=== PATIENT | female | born 1950 | race Caucasian/White ===

== ENCOUNTER → 2017-09-10 | Day surgery (SDC) | payer OTHER ==
[2017-09-01 14:06] VITALS: Ht 160 cm; Wt 65.5 kg
[~2017-09-10] VITALS: Ht 160 cm; Wt 65.5 kg
[~2017-09-10] MED LIST: 500ML BSS 0.3ML EPI 1:1000PF IRRIG ONE; ACETAMINOPHEN 325 MG TAB ONE; ACETAMINOPHEN 325 MG TAB PO PRN; AMVISC PLUS 0.8ML SYRINGE INT OCU ONE; ASPCH81X PO; ATOR-26 PO; ATROPINE SULFATE 0.1 MG/ML 5ML SYR IV PRN; BSS FLUSH ONE; BUSP15TA70 PO; DULO60CA44 PO; ELLIPTA INH; ENDOCOAT 0.85ML SYRINGE INT OCU ONE; EpINEphrine INJ 1MG/ML AMP 1 MG/ML AMP ONE; FENTANYL CITRATE INJ 50 MCG/1 ML 2 ML VIAL ONE; FERR1TAB12 PO; FLUT1SPR12 NAE; GLIP2.5T11 PO; HYDR-4380 PO; LACTATED RINGER'S 1000ML 500 ML IV SCH; LIDOCAINE 4% OP SOLN DROP CHARGE ONE; LIDOCAINE 4% OP SOLN DROP CHARGE OPL SCH; LIDOCAINE HCL 1% MPF 2 ML VIAL ONE; LORA10TA51 PO; MELA1TAB5 PO; METO25TA3 PO; MIDAZOLAM HCL 1 MG/ML 2ML VIAL ONE; MIX: 4ML BSS 1ML EPI 1:1000 PF TOP ONE; MOXIFLOXACIN OPH SOLN PER DROP CHARGE ONE; NURSING VERBAL MED ORDER ONE; OMEP20CA59 PO; OYST500T47 PO; POVIDONE-IODINE OP SOLN 30 ML BTL ONE; PROPARACAINE 0.5% OP SOLN PER DROP CHARGE OPL ONE; PROPARACAINE 0.5% OP SOLN PER DROP CHARGE OPL SCH; TOBRAMYCIN/DEXAMETHASONE OPH OINT PER APPLN CHARGE ONE; VNTHFA/IN INH
[2017-09-10] MEDS: PHENYLEPHRINE HCL 2.5% OP SOLN PER DROP CHARGE OPL SCH ×3 (10:19→10:31)
[2017-09-10] MEDS: TROPICAMIDE 1% OP SOLN PER DROP CHARGE OPL SCH ×3 (10:21→10:32)
[2017-09-10] MEDS: CYCLOPENTOLATE HCL 1% OP SOLN PER DROP CHARGE OPL SCH ×3 (10:22→10:33)
[2017-09-10] MEDS: MOXIFLOXACIN OPH SOLN PER DROP CHARGE OPL SCH ×3 (10:23→10:34)
--- NOTE | 2017-09-10 10:26 | History & Physical Bridge - SC ---
H&P Re-Evaluation Bridge Note: I have examined the patient, reviewed the History & Physical and in the interval since the performance of the History & Physical I have noted the following changes of clinical significance: No changes noted
--- NOTE | 2017-09-10 11:32 | [facility] Post Operative Brief Note ---
Immediate Operative Summary Operative Date Sep 10, 2017. Pre-Operative Diagnosis Cataract Left Eye Post-Operative Diagnosis Same Procedure(s) Performed Left Cataract Phacoemulsification With Intraocular Lens Implant Surgeon Dr. Green Summer Internship Surgeon(s) None Estimated Blood Loss 0 Findings left cataract Specimens None Complication(s) None Disposition
--- NOTE | 2017-09-10 11:33 | [facility] Operative Report ---
Operative Report Date of Service Sep 10, 2017. Operative Report DATE OF OPERATION: 09/10/17 PREOPERATIVE DIAGNOSIS: Senile nuclear cataract, left eye POSTOPERATIVE DIAGNOSIS: Senile nuclear cataract, left eye PROCEDURE PERFORMED: Phacoemulsification with intraocular lens implantation, left eye SURGEON: Dr. Erik Green ANESTHESIA: Topical with 1% intracameral lidocaine and monitored anesthesia care COMPLICATIONS: None DESCRIPTION OF PROCEDURE: After positively identifying the patient both verbally and by wristband in the preoperative area, the left eye was marked as the operative eye. The patient was then brought back to the operating room by the anesthesia and nursing staff where they were given a drop of Lidocaine and betadine into the operative eye. They were then sterilely prepped and draped in the standard fashion typical for ophthalmic surgery. Steri-strips were placed along the upper eyelids to keep the lashes back, and a lid speculum was placed into the operative eye. At this point, a documented time out was performed with members of the ophthalmology, nursing, and anesthesia staffs all agreeing upon the correct patient, correct location for surgery, correct procedure, and correct type and power of intraocular lens to be implanted. The microscope was then swung into position. First, a paracentesis wound was made using a sideport blade. Then, in sequence, 1% preservative-free lidocaine followed by Endocoat viscoelastic was injected into the anterior chamber. Next , the main incision was made with a keratome blade in triplanar fashion. A sharp cystotome was introduced into the eye and used to create a tear in the anterior capsule, which was directed into a continuous curvilinear capsulorrhexis using Utrata forceps. Hydrodissection was then performed with BSS on a flat-tip cannula. Next, the phacoemulsification handpiece was introduced into the eye and used to remove the nucleus in a [id number] fashion. This was done without complication and then the irrigation-aspiration handpiece was introduced into the eye and used to remove all remaining cortical and epinuclear material. Amvisc was then injected into the anterior chamber as well as into the capsular bag and using the lens injector system, an MX60 26.5 D lens, serial number [id number], and expiration date 02/2019 was injected into the capsular bag and rotated into the correct position. Next, the irrigation- aspiration handpiece was used to remove all remaining Amvisc. BSS was used to hydrate the main wound, and then BSS was injected into the paracentesis site to reach physiologic pressure and then the main wound was checked and found to be watertight. The patient was given drops of Vigamox and Tobradex ointment into the operative eye, and then the surrounding area was cleaned and dried. A clear plastic shield was placed over the eye and the patient was then sat up and taken from the operating room by the anesthesia staff having tolerated the procedure well and suffering no complications. DISPOSITION: The patient was returned to the recovery room in stable condition. I attest to the content of the Intraoperative Record and any orders documented therein. Any exceptions are noted below.
--- NOTE | 2017-09-10 11:34 | Discharge Instructions-SurgCtr ---
Discharge Instructions Date of Service Sep 10, 2017. Visit Reason for Visit: Cataract Left Eye Discharge Discharge Diagnosis / Problem: left cataract Discharge Goals Goal(s): Decrease discomfort, Improve function Activity Recommendations Activity Limitations: as noted below Anesthesia . Post Anesthesia Instructions: If you have had General Anesthesia or IV Sedation: * Do not drive today. * Resume driving when surgeon permits. * Do not make important decisions or sign legal documents today. * Call surgeon for: 1. Temperature elevations greater than 101 degrees F. 2. Uncontrollable pain. 3. Excessive bleeding. 4. Persistent nausea and vomiting. 5. Medication intolerance (nausea, vomiting or rash). * For nausea and vomiting use only clear liquids such as: tea, soda, bouillon until nausea subsides, then gradually increase diet as tolerated. * If you have any concerns or questions, call your surgeon's office. If physician is unavailable and it is an emergency, call 911 or go to the nearest emergency room. . Instructions / Follow-Up Instructions / Follow-Up ACTIVITY RECOMMENDATIONS: * Light activities. * You may walk outside, read, watch television. * You may notice redness on the white part of the eye and some blurry vision - this is normal. MEDICATIONS: Resume previous medications unless instructed otherwise by your surgeon. Start all eye drops at 1:30 pm today: * Eye drops (today): Prednisone - one drop in operative eye every 2 hours while awake Ofloxacin - one drop in operative eye every 2 hours while awake Bromfenac - one drop in operative eye daily SPECIAL CARE INSTRUCTIONS: * Tape plastic shield over eye to sleep at night. Call your doctor at with any concerns or problems. FOLLOW UP VISIT: Follow-up with Dr Green at [facility] as scheduled. Diet Recommendations Home Diet: no limitations Procedures Procedures Performed: Left Cataract Phacoemulsification With Intraocular Lens Implant Pending Studies Studies pending at discharge: no Medical Emergencies . Who to Call and When: Medical Emergencies: If at any time you feel your situation is an emergency, please call 911 immediately. . Non-Emergent Contact Non-Emergency issues call your: Surgeon . . "Provider Documentation" section prepared by Erik Green. .
[2017-09-10 11:35] VITALS: TEMP 36.8
--- NOTE | 2017-09-10 11:55 | Anesthesia Progress Nt - [facility] ---
Anesthesia Post Op Note Date & Time Sep 10, 2017 at 11:54 Vital Signs Pain Intensity: 0 Vital Signs Past 12 Hours Date Time Temp Pulse Resp B/P (MAP) Pulse Ox O2 Delivery O2 Flow Rate FiO2 09/10/17 11:35 36.8 60 16 128/71 (90) 94 Room Air 09/10/17 10:09 36.4 60 16 150/84 (106) 95 Room Air Notes Mental Status: alert / awake / arousable, participated in evaluation Pt Amnestic to Procedure: Yes Nausea / Vomiting: adequately controlled Pain: adequately controlled Airway Patency, RR, SpO2: stable & adequate BP & HR: stable & adequate Hydration State: stable & adequate Anesthetic Complications: no major complications apparent
[2017-09-10 12:27] VITALS: BP 129/66; PULSE 60; O2SAT 96
== END | disposition home or self-care (01) ==
LOC: X.SURG 09:44
PROVIDERS: ATTEND Ophthalmology
DX: H25.12 Age-related nuclear cataract, left eye (principal); E11.36 Type 2 diabetes mellitus with diabetic cataract; I10 Essential (primary) hypertension; M06.9 Rheumatoid arthritis, unspecified; Z79.899 Other long term (current) drug therapy

== ENCOUNTER 2018-02-09 11:05 | Emergency (ER) | payer OTHER ==
[~2018-02-09] VITALS: Ht 167.6 cm; Wt 67.0 kg
[~2018-02-09 11:05] MED LIST changes: -500ML BSS 0.3ML EPI 1:1000PF IRRIG ONE; -ACETAMINOPHEN 325 MG TAB ONE; -ACETAMINOPHEN 325 MG TAB PO PRN; -AMVISC PLUS 0.8ML SYRINGE INT OCU ONE; -ATROPINE SULFATE 0.1 MG/ML 5ML SYR IV PRN; -BSS FLUSH ONE; -ELLIPTA INH; -ENDOCOAT 0.85ML SYRINGE INT OCU ONE; -EpINEphrine INJ 1MG/ML AMP 1 MG/ML AMP ONE; -FENTANYL CITRATE INJ 50 MCG/1 ML 2 ML VIAL ONE; -LACTATED RINGER'S 1000ML 500 ML IV SCH; -LIDOCAINE 4% OP SOLN DROP CHARGE ONE; -LIDOCAINE 4% OP SOLN DROP CHARGE OPL SCH; -LIDOCAINE HCL 1% MPF 2 ML VIAL ONE; -MIDAZOLAM HCL 1 MG/ML 2ML VIAL ONE; -MIX: 4ML BSS 1ML EPI 1:1000 PF TOP ONE; -MOXIFLOXACIN OPH SOLN PER DROP CHARGE ONE; -NURSING VERBAL MED ORDER ONE; -POVIDONE-IODINE OP SOLN 30 ML BTL ONE; -PROPARACAINE 0.5% OP SOLN PER DROP CHARGE OPL ONE; -PROPARACAINE 0.5% OP SOLN PER DROP CHARGE OPL SCH; -TOBRAMYCIN/DEXAMETHASONE OPH OINT PER APPLN CHARGE ONE
[2018-02-09 11:12] VITALS: TEMP 36.9; Ht 167.6 cm; Wt 67.0 kg
[2018-02-09] MEDS ORDERED: ONDANSETRON INJ 2 MG/ML 2 ML VIAL IV STA (11:43)
[2018-02-09] MEDS ORDERED: SODIUM CHLORIDE 0.9% 1000ML 1,000 ML IV STA (11:43)
[2018-02-09] MEDS ORDERED: OPTIRAY 320 IV PRN (12:00)
--- NOTE | 2018-02-09 12:03 | EMERGENCY ROOM VISIT NOTE ---
History Report prepared by David: César Ceja Under the Supervision of: Dr. Franc Benitez M.D. First contact with patient: 11:32 Chief Complaint: GI ASSESSMENT Stated Complaint: CONSTIPATION History of Present Illness The patient is a 67 year old female who presents to the Emergency Room with complaints of constant constipation for the past 4 days. The patient states that she went to [facility] for colitis, and she was given morphine, and she has not had a bowel movement since that hospital visit. She notes that if she eats anything, then 5-10 minutes later she will vomit, and she states that she has been having a bad taste in her mouth and abdominal pain and fullness. The patient additionally notes that for the past few months she has been having trouble with her balance which is worse with looking upwards, and she states that she has fallen 4 times in the past month. She notes that she has had brain imaging done in the past two months, and she has been to therapy. The patient additionally notes that she has been been hot and cold for several months. She states that she takes Vicodin as needed for her back pain, though she has not taken any this week. The patient notes that she does not have a history of constipation, and she is not on any blood thinners. Source of History: patient Onset: 4 days ago Position: other (generalized) Quality: other (constipation) Timing: constant Associated Symptoms: + nausea, + vomiting, + abdominal pain Note: Associated symptoms: Trouble with her balance. Review of Systems See HPI for pertinent positives and negatives. A total of ten systems were reviewed and were otherwise negative. Past Medical & Surgical Medical Problems: (1) Depression (2) Diabetes type 2, controlled (3) HLD (hyperlipidemia) (4) HTN (hypertension) (5) Stage 3 chronic kidney disease Social History Smoking Status: Never Smoker Marital Status: Housing Status: lives with family Occupation Status: retired Current/Historical Medications Scheduled Aspirin (Aspirin Chewable), 81 MG PO QAM Atorvastatin (Lipitor), 80 MG PO QPM Buspirone Hcl (Buspar), 15 MG PO TID Duloxetine Hcl (Cymbalta), 60 MG PO QAM Ferrous Gluconate (Kp Ferrous Gluconate), 324 MG PO QPM Fluticasone Propionate (Nasal) (Flonase Allergy Relief ), 2 SPRAY LACI DAILY Glipizide (Glipizide Er), 2.5 MG PO QPM Melatonin (Kp Melatonin), 3 MG PO HS Metoprolol Succ (Toprol Xl) (Toprol-Xl), 37.5 MG PO QAM Omeprazole (Prilosec), 20 MG PO BID Oyster Shell (Calcium), 500 MG PO DAILY Scheduled PRN Albuterol Hfa (Ventolin Hfa), 2-4 PUFFS INH Q6H PRN for Shortness of Breath Docusate Sodium (Colace), 1 CAP PO BID PRN for Constipation Hydrocodone-Acetaminophen (Hydrocodone/Acetaminophen), 0.5-1 TAB PO BID PRN for Pain Loratadine (Claritin), 10 MG PO DAILY PRN for PRN ALLERGIES Allergies Coded Allergies: Ciprofloxacin (Verified Allergy, Unknown, hives, 02/09/18) Oxycodone (Verified Allergy, Unknown, hives; BUT PATIENT TAKES VICODIN W/ O RXN, 02/09/18) Penicillins (Verified Allergy, Unknown, hives, 02/09/18) Physical Exam Vital Signs Date Time Temp Pulse Resp B/P (MAP) Pulse Ox O2 Delivery O2 Flow Rate FiO2 02/09/18 17:00 84 18 174/91 95 02/09/18 15:04 69 18 167/87 96 Room Air 02/09/18 13:14 65 18 146/86 96 Room Air 02/09/18 12:19 73 02/09/18 11:12 36.9 71 18 179/92 95 Room Air Physical Exam GENERAL: Awake, alert, fatigued-appearing, uncomfortable, in no distress HENT: Normocephalic, atraumatic. Oropharynx unremarkable. EYES: Normal conjunctiva. Sclera non-icteric. NECK: Supple. No nuchal rigidity. FROM. No JVD. RESPIRATORY: Clear to auscultation. CARDIAC: Regular rate, normal rhythm. Extremities warm and well perfused. Pulses equal. ABDOMEN: Generalized abdominal tenderness with mild distension. No peritoneal signs. Soft. No rebound or guarding. No masses. RECTAL: Deferred. MUSCULOSKELETAL: Chest examination reveals no tenderness. The back is symmetrical on inspection without obvious abnormality. There is no CVA tenderness to palpation. No joint edema. LOWER EXTREMITIES: Calves are equal size bilaterally and non-tender. No edema. No discoloration. NEURO: Normal sensorium. No sensory or motor deficits noted. SKIN: No rash or jaundice noted. Medical Decision & Procedures ER Provider Diagnostic Interpretation: Radiology results as stated below per my review and radiologist interpretation: CHEST ONE VIEW PORTABLE HISTORY: 67 years-old Female ABDOMINAL PAIN/GI acute generalized abdominal pain with constipation COMPARISON: Chest radiographs 09/30/2014 TECHNIQUE: Portable AP view of the chest FINDINGS: Cardiac silhouette is within normal limits in size. Atherosclerosis of the aorta. Small to moderate hiatal hernia. No pneumothorax, pleural effusion, focal airspace consolidation or overt pulmonary edema. Previously described nodular opacity left lower lobe is not identified on today's study. Degenerative changes are seen within the shoulders and spine. Spinal stimulator leads are noted overlying the midthoracic spine. Cervical spine fusion hardware noted. IMPRESSION: 1. No acute process of the chest. 2. Small to moderate hiatal hernia. The above report was generated using voice recognition software. It may contain grammatical, syntax or spelling errors. Electronically signed by: Juan Jensen M.D. 02/09/2018 12:28 PM Dictated Date/Time: 02/09/2018 12:[address] OF THE ABDOMEN AND PELVIS WITHOUT CONTRAST CLINICAL HISTORY: Abdominal pain and distention. Recent colitis. COMPARISON STUDY: No previous studies for comparison. TECHNIQUE: Axial images of the abdomen and pelvis were obtained without IV contrast. Images were reviewed in the axial, sagittal, and coronal planes. A dose lowering technique was utilized adhering to the principles of ALARA. FINDINGS: Images of the lower chest demonstrate atelectasis within the lingula. A moderate sized hiatal hernia is noted. There is no pneumatosis, free air or portal venous gas. Evaluation of the abdomen and pelvis is suboptimal on this unenhanced exam. Unenhanced images of the heart, spleen and kidneys are unremarkable. There is no hydronephrosis or hydroureter. No renal, ureteral or bladder calculi are identified. Is no evidence for a bowel obstruction. There is apparent moderate circumferential wall thickening of the proximal ascending colon shown on axial image 267 of 411. The appendix is normal. There is colonic diverticulosis without evidence for acute diverticulitis. Intrathecal electrode is noted. There are no suspicious osseous lesions. IMPRESSION: 1. Apparent short segment moderate circumferential wall thickening of the proximal ascending colon. This may be related to resolving colitis or reflect artifact/peristalsis. However, a mucosal lesion could appear similar. A follow-up colonoscopy is recommended. 2. No bowel obstruction. Normal appendix. 3. Moderate sized hiatal hernia. Electronically signed by: Angel Gibson M.D. 02/09/2018 2:32 PM Dictated Date/Time: 02/09/2018 2:08 PM Laboratory Results 02/09/18 11:54 Red Blood Count 4.07, Mean Corpuscular Volume 84.0, Mean Corpuscular Hemoglobin 29.0, Mean Corpuscular Hemoglobin Concent 34.5, Mean Platelet Volume 10.5, Neutrophils (%) (Auto) 62.5, Lymphocytes (%) (Auto) 25.8, Monocytes (%) (Auto) 9.2, Eosinophils (%) (Auto) 1.5, Basophils (%) (Auto) 0.4, Neutrophils # (Auto) 4.49, Lymphocytes # (Auto) 1.85, Monocytes # (Auto) 0.66, Eosinophils # (Auto) 0.11, Basophils # (Auto) 0.03 02/09/18 11:54 Test 02/09/18 11:54 02/09/18 13:14 White Blood Count 7.18 K/uL (4.8-10.8) Red Blood Count 4.07 M/uL (4.2-5.4) Hemoglobin 11.8 g/dL (12.0-16.0) Hematocrit 34.2 % (37-47) Mean Corpuscular Volume 84.0 fL (80-100) Mean Corpuscular Hemoglobin 29.0 pg (25-34) Mean Corpuscular Hemoglobin Concent 34.5 g/dl (32-36) Platelet Count 273 K/uL (130-400) Mean Platelet Volume 10.5 fL (7.4-10.4) Neutrophils (%) (Auto) 62.5 % Lymphocytes (%) (Auto) 25.8 % Monocytes (%) (Auto) 9.2 % Eosinophils (%) (Auto) 1.5 % Basophils (%) (Auto) 0.4 % Neutrophils # (Auto) 4.49 K/uL (1.4-6.5) Lymphocytes # (Auto) 1.85 K/uL (1.2-3.4) Monocytes # (Auto) 0.66 K/uL (0.11-0.59) Eosinophils # (Auto) 0.11 K/uL (0-0.5) Basophils # (Auto) 0.03 K/uL (0-0.2) RDW Standard Deviation 40.7 fL (36.4-46.3) RDW Coefficient of Variation 13.3 % (11.5-14.5) Immature Granulocyte % (Auto) 0.6 % Immature Granulocyte # (Auto) 0.04 K/uL (0.00-0.02) Anion Gap 7.0 mmol/L (3-11) Est Creatinine Clear Calc Drug Dose 30.9 ml/min Estimated GFR () 37.4 Estimated GFR (Non- 32.3 BUN/Creatinine Ratio 10.2 (10-20) Lactic Acid Level 1.3 mmol/L (0.4-2.0) Calcium Level 9.5 mg/dl (8.5-10.1) Magnesium Level 2.0 mg/dl (1.8-2.4) Total Bilirubin 0.6 mg/dl (0.2-1) Direct Bilirubin 0.2 mg/dl (0-0.2) Aspartate Amino Transf (AST/SGOT) 44 U/L (15-37) Alanine Aminotransferase (ALT/SGPT) 36 U/L (12-78) Alkaline Phosphatase 123 U/L (45-117) Total Protein 7.9 gm/dl (6.4-8.2) Albumin 4.0 gm/dl (3.4-5.0) Lipase 90 U/L (73-393) Urine Color YELLOW Urine Appearance CLEAR (CLEAR) Urine pH 6.5 (4.5-7.5) Urine Specific [place] 1.012 (1.000-1.030) Urine Protein TRACE (NEG) Urine Glucose (UA) NEG (NEG) Urine Ketones NEG (NEG) Urine Occult Blood NEG (NEG) Urine Nitrite NEG (NEG) Urine Bilirubin NEG (NEG) Urine Urobilinogen NEG (NEG) Urine Leukocyte Esterase NEG (NEG) Urine WBC (Auto) 1-5 /hpf (0-5) Urine RBC (Auto) 0-4 /hpf (0-4) Urine Hyaline Casts (Auto) 1-5 /lpf (0-5) Urine Epithelial Cells (Auto) >30 /lpf (0-5) Urine Bacteria (Auto) NEG (NEG) Laboratory results reviewed by me Medications Administered Medications (Trade) Dose Ordered Sig/Vega Route Start Time Stop Time Status Last Admin Dose Admin Sodium Chloride 1,000 ml @ 999 mls/hr Q1H1M STAT IV 02/09/18 11:43 02/09/18 12:43 DC 02/09/18 12:05 999 MLS/HR Ondansetron HCl (Zofran Inj) 4 mg NOW STAT IV 02/09/18 11:43 02/09/18 11:47 DC 02/09/18 12:05 4 MG Metoclopramide HCl (Reglan Inj) 10 mg NOW STAT IV 02/09/18 14:48 02/09/18 14:50 DC 02/09/18 15:50 10 MG Sodium Biphosphate/ Sodium Phosphate (Fleet Enema) 132 ml NOW STAT [place] 02/09/18 14:48 02/09/18 14:50 DC 02/09/18 15:50 132 ML ECG Per My Interpretation Indication: abdominal pain Rate (beats per minute): 62 Rhythm: normal sinus Findings: no acute ischemic change, other (normal axis) ED Course 1132: The patient was evaluated in room B10. A complete history and physical exam was performed. 1451: I reevaluated the patient, and she was doing well. 1642: I reevaluated the patient. Discussed results and discharge instructions: she verbalized understanding and agreement. The patient is ready for discharge. Medical Decision I reviewed the patient's past medical history, medications, and the nursing notes as described above. Differential diagnosis: Etiologies such as appendicitis, diverticulitis, PUD, biliary pathology, UTI, pancreatitis, obstruction, mesenteric ischemia, aortic pathology, infections, inflammatory bowel disease, renal colic, as well as others were entertained. The patient is a 67-year-old woman who presents emergency department with generalized abdominal pain in setting of being recently diagnosed with colitis at outside hospital per hpi. Of note, patient reports also having chronic symptoms of difficulty with balance where she leans to the right but had unremarkable MRI of the brain in November. On arrival the patient is no acute distress, afebrile stable vital signs. On exam the patient has generalized abdominal tenderness with mild distention and otherwise without any peritoneal signs. Creatinine 1.6 which is increased from 2014 however no recent comparisons. Labs otherwise unremarkable including WBC and lactate within normal limits. CT scan demonstrates, "segment moderate circumferential wall thickening of the proximal ascending colon. This may be related to resolving colitis or reflect artifact/peristalsis. However, a mucosal lesion could appear similar". Review of scan does demonstrate moderate stool burden and so patient was given Reglan and Fleet enema with subsequent bowel movement and resolution of her symptoms. Recent symptoms possibly due to narcotics from her recent ED visit where she was given IV morphine. Plan for outpatient f/u and colonoscopy as planned. Findings and plan for follow-up reviewed with patient. Patient agreeable and d/c 'd per discharge instructions. Findings and plan for follow-up reviewed with patient. Patient agreeable and d/c 'd per discharge instructions. Medication Reconcilliation Current Medication List: was personally reviewed by me Blood Pressure Screening Patient's blood pressure: Elevated blood pressure Blood pressure disposition: Referred to PCP Impression Primary Impression: Constipation due to opioid therapy Scribe Attestation The scribe's documentation has been prepared under my direction and personally reviewed by me in its entirety. I confirm that the note above accurately reflects all work, treatment, procedures, and medical decision making performed by me. Departure Information Dispostion Home / Self-Care Prescriptions Docusate Sodium (COLACE) 100 Mg Cap 1 CAP PO BID Y for Constipation for 15 Days, #30 CAP Prov: Franc Benitez M.D. 02/09/18 Referrals Erika ZHENG M.D. (PCP) Forms HOME CARE DOCUMENTATION FORM, IMPORTANT VISIT INFORMATION Patient Instructions ED Constipation, My [facility] Additional Instructions Please follow up with your primary care physician and GI specialist in the next week for re-evaluation. Your symptoms are most likely due to constipation. Otherwise, your exam, lab results, and CT scan did not show signs of an emergent condition at this time. Colace as needed for constipation. Drink plenty of fluids to ensure hydration. Return to the emergency department for worsening symptoms as described in the accompanying instructions.
[2018-02-09 12:10] LABS: BASO % 0.4 %; BASO ABS # 0.03 K/uL (0-0.2); EOS % 1.5 %; EOS ABS # 0.11 K/uL (0-0.5); HEMATOCRIT 34.2 % (37-47); HEMOGLOBIN 11.8 g/dL (12.0-16.0); IG# 0.04 K/uL (0.00-0.02); LYMPH % 25.8 %; LYMPH ABS # 1.85 K/uL (1.2-3.4); MEAN CORPUSCULAR HGB CONC 34.5 g/dl (32-36); MEAN PLATELET VOLUME 10.5 fL (7.4-10.4); MONO % 9.2 %; MONO ABS # 0.66 K/uL (0.11-0.59); NEUT % 62.5 %; NEUT ABS # 4.49 K/uL (1.4-6.5); PLATELET COUNT 273 K/uL (130-400); RED CELL DISTRIBUTION WIDTH CV 13.3 % (11.5-14.5); RED CELL DISTRIBUTION WIDTH SD 40.7 fL (36.4-46.3); WHITE BLOOD COUNT 7.18 K/uL (4.8-10.8)
[2018-02-09 12:22] LABS: CALCIUM 9.5 mg/dl (8.5-10.1); CREATININE 1.61 mg/dl (0.60-1.20); POTASSIUM 3.6 mmol/L (3.5-5.1)
[2018-02-09 12:25] LABS: TOTAL PROTEIN 7.9 gm/dl (6.4-8.2)
--- NOTE | 2018-02-09 12:29 | DIAGNOSTIC IMAGING REPORT ---
CHEST ONE VIEW PORTABLE HISTORY: 67 years-old Female ABDOMINAL PAIN/GI acute generalized abdominal pain with constipation COMPARISON: Chest radiographs 09/30/2014 TECHNIQUE: Portable AP view of the chest FINDINGS: Cardiac silhouette is within normal limits in size. Atherosclerosis of the aorta. Small to moderate hiatal hernia. No pneumothorax, pleural effusion, focal airspace consolidation or overt pulmonary edema. Previously described nodular opacity left lower lobe is not identified on today's study. Degenerative changes are seen within the shoulders and spine. Spinal stimulator leads are noted overlying the midthoracic spine. Cervical spine fusion hardware noted. IMPRESSION: 1. No acute process of the chest. 2. Small to moderate hiatal hernia. The above report was generated using voice recognition software. It may contain grammatical, syntax or spelling errors. Electronically signed by: Juan Jensen M.D. 02/09/2018 12:28 PM Dictated Date/Time: 02/09/2018 12:26 PM
[2018-02-09] MEDS ORDERED: PRLSR20 PO (14:19)
--- NOTE | 2018-02-09 14:34 | DIAGNOSTIC IMAGING REPORT ---
CT OF THE ABDOMEN AND PELVIS WITHOUT CONTRAST CLINICAL HISTORY: Abdominal pain and distention. Recent colitis. COMPARISON STUDY: No previous studies for comparison. TECHNIQUE: Axial images of the abdomen and pelvis were obtained without IV contrast. Images were reviewed in the axial, sagittal, and coronal planes. A dose lowering technique was utilized adhering to the principles of ALARA. FINDINGS: Images of the lower chest demonstrate atelectasis within the lingula. A moderate sized hiatal hernia is noted. There is no pneumatosis, free air or portal venous gas. Evaluation of the abdomen and pelvis is suboptimal on this unenhanced exam. Unenhanced images of the heart, spleen and kidneys are unremarkable. There is no hydronephrosis or hydroureter. No renal, ureteral or bladder calculi are identified. Is no evidence for a bowel obstruction. There is apparent moderate circumferential wall thickening of the proximal ascending colon shown on axial image 267 of 411. The appendix is normal. There is colonic diverticulosis without evidence for acute diverticulitis. Intrathecal electrode is noted. There are no suspicious osseous lesions. IMPRESSION: 1. Apparent short segment moderate circumferential wall thickening of the proximal ascending colon. This may be related to resolving colitis or reflect artifact/peristalsis. However, a mucosal lesion could appear similar. A follow-up colonoscopy is recommended. 2. No bowel obstruction. Normal appendix. 3. Moderate sized hiatal hernia. Electronically signed by: Angel Gibson M.D. 02/09/2018 2:32 PM Dictated Date/Time: 02/09/2018 2:08 PM
[2018-02-09] MEDS ORDERED: SOD PHOSPHATE/SOD BIPHOSPHATE ENEMA 132 ML BTL PR STA (14:48)
[2018-02-09] MEDS ORDERED: METOCLOPRAMIDE HCL INJ 5 MG/ML 2 ML VIAL IV STA (14:48)
[2018-02-09] MEDS ORDERED: DOCU-94 PO (16:50)
[2018-02-09 17:00] VITALS: BP 174/91; PULSE 84; O2SAT 95
== END 2018-02-09 17:03 | disposition home or self-care (01) ==
LOC: C.EDB 11:06
DX: K59.09 Other constipation (principal); K52.9 Noninfective gastroenteritis and colitis, unspecified; R29.6 Repeated falls; E11.22 Type 2 diabetes mellitus with diabetic chronic kidney disease; I12.9 Hypertensive chronic kidney disease with stage 1 through stage 4 chronic kidney disease, or unspecified chronic kidney disease; N18.3 Chronic kidney disease, stage 3 (moderate); F32.9 Major depressive disorder, single episode, unspecified; E78.5 Hyperlipidemia, unspecified; Z79.84 Long term (current) use of oral hypoglycemic drugs; Z79.82 Long term (current) use of aspirin; Z88.1 Allergy status to other antibiotic agents; Z88.6 Allergy status to analgesic agent; Z88.0 Allergy status to penicillin

== ENCOUNTER 2018-02-21 21:22 | Emergency (ER) | payer OTHER ==
[~2018-02-21 21:22] MED LIST changes: +DOCU-94 PO; -OMEP20CA59 PO; +PRLSR20 PO
[2018-02-21 21:30] VITALS: TEMP 36.7
--- NOTE | 2018-02-21 21:53 | EMERGENCY ROOM VISIT NOTE ---
History Report prepared by David: Kathe Chavarria Under the Supervision of: Dr. Ti Artis M.D. First contact with patient: 21:41 Chief Complaint: ABDOMINAL PAIN Stated Complaint: ABDOMINAL PAIN, BLOATING, NAUSEA, DIARRHEA History of Present Illness The patient is a 67 year old white female with a past medical history of diabetes and HLD who presents to the ED with a cc of abdominal pain beginning since February 04. Positive nausea, vomiting, black diarrhea, lack of urination, stomach swelling, and a bad taste in her mouth. Negative abdominal surgeries or recent antibiotic use. She describes her pain as constant tightness and pressure. Her last bowel movement was around 1999 today. The patient takes pills for her diabetes. Source of History: patient Onset: February 04 Position: abdomen Quality: pressure, other (tightness) Timing: constant Associated Symptoms: + nausea, + vomiting, + diarrhea (black), + urinary symptoms (lack of urination) Note: Positive stomach swelling and a bad taste in her mouth. Negative abdominal surgeries or recent antibiotic use. Review of Systems See HPI for pertinent positives and negatives. A total of ten systems were reviewed and were otherwise negative. Past Medical & Surgical Medical Problems: (1) Depression (2) Diabetes type 2, controlled (3) HLD (hyperlipidemia) (4) HTN (hypertension) (5) Stage 3 chronic kidney disease Family History Diabetes mellitus High blood pressure Social History Smoking Status: Former Smoker Smokeless Tobacco Use: No Alcohol Use: none Marital Status: Housing Status: lives with family Occupation Status: retired Current/Historical Medications Scheduled Aspirin (Aspirin Chewable), 81 MG PO QAM Atorvastatin (Lipitor), 80 MG PO QPM Buspirone Hcl (Buspar), 15 MG PO TID Dicyclomine Hcl (Bentyl), 1 CAP PO TID Duloxetine Hcl (Cymbalta), 60 MG PO QAM Ferrous Gluconate ( Ferrous Gluconate), 324 MG PO QPM Glipizide (Glipizide Er), 2.5 MG PO ON HOLD Melatonin (Kp Melatonin), 3 MG PO HS Metoprolol Succ (Toprol Xl) (Toprol-Xl), 37.5 MG PO QAM Omeprazole (Prilosec), 20 MG PO BID Scheduled PRN Albuterol Hfa (Ventolin Hfa), 2-4 PUFFS INH Q6H PRN for Shortness of Breath Docusate Sodium (Colace), 1 CAP PO BID PRN for Constipation Fluticasone Propionate (Nasal) (Flonase Allergy Relief Ch), 2 SPRAY LACI DAILY PRN for Nasal Congestion Hydrocodone-Acetaminophen (Hydrocodone/Acetaminophen), 0.5-1 TAB PO BID PRN for Pain Loratadine (Claritin), 10 MG PO DAILY PRN for PRN ALLERGIES Ondansetron Hcl (Zofran), 1 TAB PO Q6H PRN for Nausea Allergies Coded Allergies: Ciprofloxacin (Verified Allergy, Unknown, hives, 02/09/18) Oxycodone (Verified Allergy, Unknown, hives; BUT PATIENT TAKES VICODIN W/ O RXN, 02/09/18) Penicillins (Verified Allergy, Unknown, hives, 02/09/18) Physical Exam Vital Signs Date Time Temp Pulse Resp B/P (MAP) Pulse Ox O2 Delivery O2 Flow Rate FiO2 02/21/18 23:34 74 20 142/76 94 Room Air 02/21/18 21:30 36.7 85 20 108/73 96 Room Air Physical Exam GENERAL: Awake, alert, well-appearing, in mild distress, uncomfortable in appearance HENT: Normocephalic, atraumatic. EYES: Normal conjunctiva. Sclera non-icteric. PERRL. No anisocoria. NECK: Supple. No nuchal rigidity. FROM. RESPIRATORY: CTAB, no rhonchi, wheezing, crackles CARDIAC: RRR, no MRG ABDOMEN: Soft, BS+, mild diffuse abdominal discomfort, mild distention noted. Not peritinic. Negative obturators, negative psoas. MSK: No chest wall TTP, no LE edema NEURO: GCS 15, CN 2-12 intact, moves all 4s on command SKIN: No rash or jaundice noted. Medical Decision & Procedures ER Provider Diagnostic Interpretation: Radiology results as stated below per my review and radiologist interpretation: CHEST ONE VIEW PORTABLE HISTORY: 67 years-old Female ABDOMINAL PAIN/GI acute chest and abdominal pain COMPARISON: Chest radiograph 02/09/2018 TECHNIQUE: Portable AP view the chest FINDINGS: Cardiomediastinal and hilar silhouettes are within normal limits. Atherosclerosis of the aorta. Small to moderate hiatal hernia. No pneumothorax, pleural effusion, focal airspace consolidation or overt pulmonary edema. Degenerative changes of the shoulders and spine. Fusion hardware of the lower cervical spine. Spinal stimulator leads overlying the midthoracic spine. IMPRESSION: No acute process. The above report was generated using voice recognition software. It may contain grammatical, syntax or spelling errors. Electronically signed by: Juan Jensen M.D. 02/21/2018 10:11 PM Dictated Date/Time: 02/21/2018 10:[address] ABDOMEN & PELVIS Without Contrast: Moderate to large hiatal hernia. Prominent duodenal diverticulum. Coloni diverticulosis without inflammation. Mild fluid levels in the small and large bowel wthout obstruction or wall thickening. No evidence for acute appendicitis. Radiologist: Antwan Benjamin MD Study ready at 23:53 and initial results transmitted at 00:11 Laboratory Results 02/21/18 23:00 Red Blood Count 4.11, Mean Corpuscular Volume 84.4, Mean Corpuscular Hemoglobin 29.2, Mean Corpuscular Hemoglobin Concent 34.6, Mean Platelet Volume 10.4, Neutrophils (%) (Auto) 68.8, Lymphocytes (%) (Auto) 22.0, Monocytes (%) (Auto) 7.7, Eosinophils (%) (Auto) 0.8, Basophils (%) (Auto) 0.5, Neutrophils # (Auto) 7.72, Lymphocytes # (Auto) 2.47, Monocytes # (Auto) 0.87, Eosinophils # (Auto) 0.09, Basophils # (Auto) 0.06 02/21/18 23:00 Test 02/21/18 23:00 02/22/18 00:30 White Blood Count 11.23 K/uL (4.8-10.8) Red Blood Count 4.11 M/uL (4.2-5.4) Hemoglobin 12.0 g/dL (12.0-16.0) Hematocrit 34.7 % (37-47) Mean Corpuscular Volume 84.4 fL (80-100) Mean Corpuscular Hemoglobin 29.2 pg (25-34) Mean Corpuscular Hemoglobin Concent 34.6 g/dl (32-36) Platelet Count 336 K/uL (130-400) Mean Platelet Volume 10.4 fL (7.4-10.4) Neutrophils (%) (Auto) 68.8 % Lymphocytes (%) (Auto) 22.0 % Monocytes (%) (Auto) 7.7 % Eosinophils (%) (Auto) 0.8 % Basophils (%) (Auto) 0.5 % Neutrophils # (Auto) 7.72 K/uL (1.4-6.5) Lymphocytes # (Auto) 2.47 K/uL (1.2-3.4) Monocytes # (Auto) 0.87 K/uL (0.11-0.59) Eosinophils # (Auto) 0.09 K/uL (0-0.5) Basophils # (Auto) 0.06 K/uL (0-0.2) RDW Standard Deviation 40.4 fL (36.4-46.3) RDW Coefficient of Variation 13.3 % (11.5-14.5) Immature Granulocyte % (Auto) 0.2 % Immature Granulocyte # (Auto) 0.02 K/uL (0.00-0.02) Anion Gap 9.0 mmol/L (3-11) Estimated GFR () 37.7 Estimated GFR (Non- 32.5 BUN/Creatinine Ratio 14.2 (10-20) Calcium Level 9.7 mg/dl (8.5-10.1) Magnesium Level 2.1 mg/dl (1.8-2.4) Total Bilirubin 0.9 mg/dl (0.2-1) Direct Bilirubin 0.3 mg/dl (0-0.2) Aspartate Amino Transf (AST/SGOT) 27 U/L (15-37) Alanine Aminotransferase (ALT/SGPT) 29 U/L (12-78) Alkaline Phosphatase 89 U/L (45-117) Troponin I < 0.015 ng/ml (0-0.045) Total Protein 7.4 gm/dl (6.4-8.2) Albumin 4.0 gm/dl (3.4-5.0) Lipase 143 U/L (73-393) Urine Color YELLOW Urine Appearance CLEAR (CLEAR) Urine pH 7.0 (4.5-7.5) Urine Specific [place] 1.009 (1.000-1.030) Urine Protein NEG (NEG) Urine Glucose (UA) NEG (NEG) Urine Ketones NEG (NEG) Urine Occult Blood NEG (NEG) Urine Nitrite NEG (NEG) Urine Bilirubin NEG (NEG) Urine Urobilinogen NEG (NEG) Urine Leukocyte Esterase SMALL (NEG) Urine WBC (Auto) 1-5 /hpf (0-5) Urine RBC (Auto) 0-4 /hpf (0-4) Urine Hyaline Casts (Auto) 1-5 /lpf (0-5) Urine Epithelial Cells (Auto) 20-30 /lpf (0-5) Urine Bacteria (Auto) NEG (NEG) Laboratory results reviewed by me Medications Administered Medications (Trade) Dose Ordered Sig/Vega Route Start Time Stop Time Status Last Admin Dose Admin Sodium Chloride 1,000 ml @ 999 mls/hr Q1H1M STAT IV 02/21/18 21:56 02/21/18 22:56 DC 02/21/18 23:24 999 MLS/HR Fentanyl Citrate (Fentanyl Inj) 25 mcg NOW ONCE IV 02/21/18 22:00 02/21/18 22:01 DC 02/21/18 23:25 25 MCG Dicyclomine HCl (Bentyl Inj) 20 mg NOW ONCE IM 02/21/18 22:00 02/21/18 22:01 DC 02/21/18 23:25 20 MG Metoclopramide HCl (Reglan Inj) 10 mg NOW STAT IV. 02/21/18 22:00 02/21/18 22:02 DC 02/21/18 23:24 10 MG Al Hydroxide/Mg Hydroxide (Maalox Susp) 30 ml STK-MED ONCE .ROUTE 02/22/18 00:32 02/22/18 00:33 DC 02/22/18 00:32 30 ML Lidocaine HCl (Viscous Lidocaine 2% Soln) 20 ml STK-MED ONCE .ROUTE 02/22/18 00:32 02/22/18 00:33 DC 02/22/18 00:35 20 ML Procedure Radiology results as stated below per my review and radiologist interpretation: CHEST ONE VIEW PORTABLE HISTORY: 67 years-old Female ABDOMINAL PAIN/GI acute chest and abdominal pain COMPARISON: Chest radiograph 02/09/2018 TECHNIQUE: Portable AP view the chest FINDINGS: Cardiomediastinal and hilar silhouettes are within normal limits. Atherosclerosis of the aorta. Small to moderate hiatal hernia. No pneumothorax, pleural effusion, focal airspace consolidation or overt pulmonary edema. Degenerative changes of the shoulders and spine. Fusion hardware of the lower cervical spine. Spinal stimulator leads overlying the midthoracic spine. IMPRESSION: No acute process. The above report was generated using voice recognition software. It may contain grammatical, syntax or spelling errors. Electronically signed by: Juan Jensen M.D. 02/21/2018 10:11 PM Dictated Date/Time: 02/21/2018 10:09 PM ECG Per My Interpretation Indication: abdominal pain Rate (beats per minute): 79 Rhythm: normal sinus Findings: other (normal intervals, normal axis, no STS changes or TWI ) ED Course 2144: The patient was evaluated in room B12. A complete history and physical exam was performed. 2155: Ordered Zofran Inj 4 mg IV, Sodium Chloride 1000 ml @ 999 mls/hr IV 1999: Ordered Reglan Inj 10 mg IV, Bentyl Inj 20 mg IM, Fentanyl Inj 25 mcg IV 2254: I placed an ultrasound and got an IV in the patient 9: Ordered GI Cocktail 24 ml PO 0032: Ordered Lidocaine HCl 20 ml IV, Maalox Susp 30 ml PO 0041: I reevaluated the patient. Discussed results and discharge instructions: She verbalized understanding and agreement. The patient is ready for discharge. Medical Decision The patient is a 67 year old white female with a past medical history of diabetes and HLD who presents to the ED with a cc of abdominal pain beginning since February 04. Positive vomiting, black diarrhea, lack of urination, stomach swelling, and a bad taste in her mouth. Negative abdominal surgeries or recent antibiotic use. Prior records/ancillary studies reviewed. Triage Nursing notes reviewed. The patient's history was concerning for abdominal pain. Differential diagnosis: Etiologies such as appendicitis, diverticulitis, PUD, biliary pathology, UTI, pancreatitis, obstruction, mesenteric ischemia, aortic pathology, infections, inflammatory bowel disease, renal colic, as well as others were entertained. Patient was seen and evaluated the bedside. Patient is an intermittent chronic abdominal pain ongoing for greater than 1 month. Patient has been seen at [facility], primary care physician, as well as his hospital. Patient has had questionable colitis. Patient has had intermittent bouts of constipation that have been relieved with medications. The patient is pending a colonoscopy on Friday. Exam the patient does have mild abdominal distention with mild abdominal diffuse discomfort but without any peritonitis or guarding or rebound. Patient has had some nausea. Patient did have blood work completed, EKG, troponin, chest x-ray and CT of the abdomen pelvis. Patient was also given medications for symptom control. Patient's EKG is unremarkable with a negative troponin. Less likely referred chest pain or ACS. Patient's white count is within normal limits. Patient is not anemic. LFTs and lipase within normal limits. Kidney function at baseline with a creatinine of 1.6. Patient did have a CT abdomen pelvis which did not show any acute abnormalities that would require surgical or medical management. The patient does have some fluid levels but no evidence of diverticulitis. The patient is not obstipated as the patient has been passing gas. The patient does have a hiatal hernia. We did discuss the conservative management for hiatal hernias. The patient was feeling improved. The patient was able tolerate p.o. Do not believe that the patient requires further treatment here in the emergency department and is suitable for outpatient follow-up and treatment. The patient was agreeable to plan of care. Patient was given strict follow-up, discharge, and return precautions and the patient was safely discharged home. Medication Reconcilliation Current Medication List: was personally reviewed by me Blood Pressure Screening Patient's blood pressure: Normal blood pressure Blood pressure disposition: Did not require urgent referral Impression Primary Impression: Hiatal hernia with GERD Additional Impression: Constipation Scribe Attestation The scribe's documentation has been prepared under my direction and personally reviewed by me in its entirety. I confirm that the note above accurately reflects all work, treatment, procedures, and medical decision making performed by me. Departure Information Dispostion Home / Self-Care Prescriptions Dicyclomine Hcl (BENTYL) 10 Mg Cap 1 CAP PO TID for 7 Days, #21 CAP Prov: Ti Artis M.D. 02/22/18 Ondansetron Hcl (ZOFRAN) 4 Mg Tab 1 TAB PO Q6H Y for Nausea, #12 TAB 1 Refill Prov: Ti Artis M.D. 02/22/18 Referrals Erika ZHENG M.D. (PCP) Forms Call Back Authorization, HOME CARE DOCUMENTATION FORM, IMPORTANT VISIT INFORMATION Patient Instructions Diet High Fiber Dc, ED Diet [place], ED GERD, GERD Lifestyle Changes, Hiatal Hernia, My [facility] Additional Instructions Please return to the emergency department if you have worsening or recurrent symptoms not amenable to at-home treatment. Please call for a follow-up appointment with her primary care physician. Please take your medications as prescribed. If you have other concerns and/or complaints please feel free to also call your primary care physician's office or return the ED for further evaluation, management, and treatment. For constipation please consider hydrating liberally with clear liquids, high- fiber diet, leafy greens. Please avoid antihistamines and narcotic medications. He may also consider stool softeners, laxatives, and/or suppositories. You may take tylenol 650 mg every 6 hours as needed for pain/fever unless told by your physician to not take it or have liver problems. To help with your reflux type symptoms please consider smaller more frequent meals. Please do not lay down after eating. Consider avoiding spicy, citrus, peppermint, chocolate. Consider taking a PPI like Nexium 20 mg daily or an antihistamine like Pepcid 20 mg twice daily. Sitting upright may help improve her symptoms also. Do not lay down after eating or drinking. You may also try things like Tums or Maalox. Take your medications as prescribed. If taking an antibiotic consider taking a probiotic and/or eating yogurt, but at the least, please take with food as it can cause upset stomach. You have been examined and treated today on an emergency basis only. This is not a substitute for, or an effort to provide, complete comprehensive medical care. It is impossible to recognize and treat all injuries or illnesses in a single emergency department visit. It is therefore important that you follow up closely with [facility], your PCP, and/or your specialist(s). Call as soon as possible for an appointment. Thank you for your time and consideration. I look forward to speaking with you again soon. Please don't hesitate to call us if you have any questions. Problem Qualifiers Additional Impression: Constipation Constipation type: unspecified constipation type Qualified Codes: K59.00 - Constipation, unspecified
[2018-02-21] MEDS ORDERED: SODIUM CHLORIDE 0.9% 1000ML 1,000 ML IV STA (21:56)
[2018-02-21] MEDS ORDERED: ONDANSETRON INJ 2 MG/ML 2 ML VIAL IV STA (21:56)
[2018-02-21] MEDS ORDERED: DICYCLOMINE HCL 10 MG/ML 2 ML AMP IM ONE (22:00)
[2018-02-21] MEDS ORDERED: METOCLOPRAMIDE HCL INJ 5 MG/ML 2 ML VIAL IV. STA (22:00)
[2018-02-21] MEDS ORDERED: FENTANYL CITRATE INJ 50 MCG/1 ML 2 ML VIAL IV ONE (22:00)
--- NOTE | 2018-02-21 22:12 | DIAGNOSTIC IMAGING REPORT ---
CHEST ONE VIEW PORTABLE HISTORY: 67 years-old Female ABDOMINAL PAIN/GI acute chest and abdominal pain COMPARISON: Chest radiograph 02/09/2018 TECHNIQUE: Portable AP view the chest FINDINGS: Cardiomediastinal and hilar silhouettes are within normal limits. Atherosclerosis of the aorta. Small to moderate hiatal hernia. No pneumothorax, pleural effusion, focal airspace consolidation or overt pulmonary edema. Degenerative changes of the shoulders and spine. Fusion hardware of the lower cervical spine. Spinal stimulator leads overlying the midthoracic spine. IMPRESSION: No acute process. The above report was generated using voice recognition software. It may contain grammatical, syntax or spelling errors. Electronically signed by: Juan Jensen M.D. 02/21/2018 10:11 PM Dictated Date/Time: 02/21/2018 10:09 PM
[2018-02-21 23:13] LABS: BASO % 0.5 %; BASO ABS # 0.06 K/uL (0-0.2); EOS % 0.8 %; EOS ABS # 0.09 K/uL (0-0.5); HEMATOCRIT 34.7 % (37-47); IG# 0.02 K/uL (0.00-0.02); LYMPH ABS # 2.47 K/uL (1.2-3.4); MEAN CELL VOLUME 84.4 fL (80-100); MEAN CORPUSCULAR HEMOGLOBIN 29.2 pg (25-34); MEAN CORPUSCULAR HGB CONC 34.6 g/dl (32-36); MEAN PLATELET VOLUME 10.4 fL (7.4-10.4); MONO % 7.7 %; MONO ABS # 0.87 K/uL (0.11-0.59); NEUT % 68.8 %; NEUT ABS # 7.72 K/uL (1.4-6.5); PLATELET COUNT 336 K/uL (130-400); RED CELL DISTRIBUTION WIDTH CV 13.3 % (11.5-14.5); RED CELL DISTRIBUTION WIDTH SD 40.4 fL (36.4-46.3); WHITE BLOOD COUNT 11.23 K/uL (4.8-10.8)
[2018-02-21 23:34] LABS: ALT/SGPT 29 U/L (12-78); AST/SGOT 27 U/L (15-37); BLOOD UREA NITROGEN 23 mg/dl (7-18); CALCIUM 9.7 mg/dl (8.5-10.1); CARBON DIOXIDE 29 mmol/L (21-32); GLUCOSE 150 mg/dl (70-99); LIPASE 143 U/L (73-393); POTASSIUM 4.4 mmol/L (3.5-5.1); SODIUM 134 mmol/L (136-145)
[2018-02-21 23:40] LABS: ALKALINE PHOSPHATASE 89 U/L (45-117); TOTAL PROTEIN 7.4 gm/dl (6.4-8.2)
[2018-02-22] MEDS ORDERED: GI COCKTAIL PO STA (00:29)
[2018-02-22] MEDS ORDERED: ALUMINUM/MAGNESIUM SUSP 30 ML UDC ONE (00:32)
[2018-02-22] MEDS ORDERED: LIDOCAINE HCL 2% VISC SOLN 20 ML UDC ONE (00:32)
[2018-02-22] MEDS ORDERED: ONDA4TAB65 PO (01:02)
[2018-02-22] MEDS ORDERED: DICY10CA55 PO (01:02)
[2018-02-22 01:14] VITALS: BP 136/86; PULSE 73; O2SAT 97
[2018-02-22] MEDS ORDERED: ONDANSETRON HOME PACK 4MG OD TAB PO ONE (01:15)
--- NOTE | 2018-02-22 08:41 | DIAGNOSTIC IMAGING REPORT ---
ABDOMEN AND PELVIS CT WITHOUT CONTRAST CT DOSE: 317.04 mGy.cm HISTORY: Acute generalized abdominal pain. TECHNIQUE: Multiaxial CT images of the abdomen and pelvis were performed without contrast. A dose lowering technique was utilized adhering to the principles of ALARA. COMPARISON STUDY: Abdomen and pelvis CT 02/09/2018. FINDINGS: The lung bases are essentially clear. Moderate hiatus hernia, unchanged. Spinal stimulator leads are partially visualized. No pneumoperitoneum. No pneumatosis. No fractures within the visualized osseous structures. A few diverticula at the second portion of the duodenum measuring up to 2 cm. The unenhanced liver, gallbladder, adrenal glands, and kidneys are within normal limits. The calcification within the spleen, unchanged. There is complete fatty replacement of the pancreas, unchanged. Normal caliber thoracic aorta. No retroperitoneal lymphadenopathy. No renal or ureteral calculi. No hydronephrosis. The bladder, uterus, bilateral adnexa are unremarkable. Suboptimal evaluation for bowel pathology due to the lack of intravenous and oral contrast. However, there is no definite bowel wall thickening or obstruction. Normal appendix. Questionable thickening of the proximal jejunal loops is likely due to underdistention. IMPRESSION: 1. No bowel wall thickening or obstruction. 2. Normal appendix. 3. Colonic diverticulosis. No evidence for diverticulitis. 3. Moderate hiatus hernia is again noted. Electronically signed by: Nelson Garzon M.D. 02/22/2018 8:39 AM Dictated Date/Time: 02/22/2018 8:34 AM
== END 2018-02-22 01:16 | disposition home or self-care (01) ==
LOC: C.EDB 21:23
DX: K44.9 Diaphragmatic hernia without obstruction or gangrene (principal); K21.9 Gastro-esophageal reflux disease without esophagitis; K59.00 Constipation, unspecified; E11.22 Type 2 diabetes mellitus with diabetic chronic kidney disease; E78.5 Hyperlipidemia, unspecified; I12.9 Hypertensive chronic kidney disease with stage 1 through stage 4 chronic kidney disease, or unspecified chronic kidney disease; N18.3 Chronic kidney disease, stage 3 (moderate); F32.9 Major depressive disorder, single episode, unspecified; Z87.891 Personal history of nicotine dependence; Z88.0 Allergy status to penicillin; Z88.1 Allergy status to other antibiotic agents; Z88.5 Allergy status to narcotic agent; Z83.3 Family history of diabetes mellitus; Z79.82 Long term (current) use of aspirin; Z79.84 Long term (current) use of oral hypoglycemic drugs; Z79.899 Other long term (current) drug therapy

== ENCOUNTER 2019-04-14 16:21 | Inpatient (IN) ==
[2019-04-14] MEDS ORDERED: ONDANSETRON INJ 2 MG/ML 2 ML VIAL IV STA (16:48)
[2019-04-14] MEDS ORDERED: SODIUM CHLORIDE 0.9% 1000ML 1,000 ML IV SCH (17:00)
[2019-04-14] MEDS ORDERED: FAMOTIDINE 20MG/5ML IV PUSH IV STA (17:25)
[2019-04-14 17:41] LABS: Basophils # (auto) 0.06 K/uL (0-0.2); Basophils % (auto) 0.5 %; Eosinophils # (auto) 0.16 K/uL (0-0.5); Eosinophils % (auto) 1.4 %; Hemoglobin 12.9 g/dL (12.0-16.0); Immature Granulocytes # (auto) 0.03 K/uL (0.00-0.02); Immature Granulocytes % (auto) 0.3 %; Lymphocytes # (auto) 3.75 K/uL (1.2-3.4); Lymphocytes % (auto) 31.6 %; Mean Corpuscular Hgb Conc 33.9 g/dL (32-36); Mean Corpuscular Volume 87.4 fL (80-100); Monocytes # (auto) 0.94 K/uL (0.11-0.59); Monocytes % (auto) 7.9 %; Neutrophils # (auto) 6.91 K/uL (1.4-6.5); Neutrophils % (auto) 58.3 %; Platelet Count 297 K/uL (130-400); RDW Coefficient of Variation 15.1 % (11.5-14.5); RDW Standard Deviation 48.2 fL (36.4-46.3); Red Blood Count 4.35 M/uL (4.2-5.4); White Blood Count 11.85 K/uL (4.8-10.8)
[2019-04-14 18:00] LABS: Alanine Aminotransferase 24 U/L (12-78); Albumin Level 4.4 gm/dl (3.4-5.0); Aspartate Aminotransferase 21 U/L (15-37); BUN Creatinine Ratio 12.9 (10-20); Blood Urea Nitrogen 42 mg/dl (7-18); Calcium 10.1 mg/dl (8.5-10.1); Carbon Dioxide 20 mmol/L (21-32); Chloride 105 mmol/L (98-107); Est GFR (African American) 15.8; Est GFR (Non-African American) 13.7; Glucose 149 mg/dl (70-99); Magnesium 1.9 mg/dl (1.8-2.4); Potassium 5.3 mmol/L (3.5-5.1); Sodium 134 mmol/L (136-145)
[2019-04-14 18:11] LABS: Albumin Globulin Ratio 1.3 (0.9-2); Alkaline Phosphatase 116 U/L (45-117); Bilirubin,Total 0.3 mg/dl (0.2-1); Globulin 3.5 gm/dl (2.5-4.0); Total Protein 7.9 gm/dl (6.4-8.2)
[2019-04-14 18:50] LABS: Appearance Urine Cloudy (Clear); Bacteria Urine Automated Negative (Negative); Bilirubin Urine Negative (Negative); Blood Urine 1+ (Negative); Color Urine Yellow; Epithelial Cell Urine Auto >30 /lpf (0-5); Glucose Urine UA Negative (Negative); Ketones Urine Negative (Negative); Leukocyte Esterase Urine Negative (Negative); Nitrite Urine Negative (Negative); Protein Urine 2+ (Negative); RBC Urine Automated 0-4 /hpf (0-4); Specific Gravity Urine 1.016 (1.000-1.030); Urobilinogen Urine Negative (Negative)
[2019-04-14 19:25] LABS: Renal Epithelial Cells Urine 0-5 /lpf (0-5)
--- NOTE | 2019-04-14 20:11 | History & Physical Report ---
Date of Service April 14, 2019 Assessment & Plan (1) Acute kidney injury superimposed on chronic kidney disease: This is a 69-year-old female with a PMH of CKD III, DM II, COPD, late onset Alzeimer's disease, pancreatic cyst, mood disorder and other medical problems listed below who presents with continued nausea and vomiting and was found to have acute kidney injury superimposed on chronic kidney disease. -Creatinine elevated at 3.24 with BUN of 42 (baseline Cr low-mid 1s), K of 5.3 -In setting of poor p.o. intake, lisinopril use -Gentle rehydration with IV fluids, hold lisinopril -Continue monitoring with daily BMP (2) Abdominal bloating: (3) Nausea and vomiting: Has been an intermittent issue for months, following with Dr. 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 ED physician discussed with Dr. Viera. Does not feel that any further imaging is needed at this time. Continue Radha Arzate -Also concern that multiple psychiatric medications are contributing to GI issues with side effects of nausea, vomiting, abdominal pain (4) Multiple falls: Has been generally weak and less coordinated at home -In setting of dehydration, poor PO intake -Also with history of late onset Alzheimer's disease -PT/OT evaluation (5) Hallucination, visual: (6) Auditory hallucinations: Has been occurring this week, not harmful in nature -Has history of depression and anxiety and is currently taking bupropion, BuSpar, duloxetine and trazodone -Would benefit from evaluation of psychiatrist for evaluation of new hallucinations as well as review of psychiatric medications -Holding trazodone and hydrocodone-acetaminophen (7) Mood disorder: Will continue SSRI, bupropion and BuSpar as needed -Holding trazodone due to concern that its contributing to unsteadiness and confusion (8) HTN (hypertension): Normotensive -Holding lisinopril in setting of acute kidney injury - does not think patient has been taking beta-feli at home for the past few months (9) Diabetes type 2, controlled: A1c of 6.6 in Oct 2018. Will repeat a1c -Hold home agents -SSI while in-patient -BSG AC HS (10) Alzheimer's disease: Diagnosed by neurology group in January of this year -Could be worsening and contributing to confusion, agitation and decreased coordination -Continue Aricept DVT Ppx: SQ heparin Code status: FULL PCP: Sid Dispo: Admitted to [facility]. Discharge planning ordered. Patient seen in collaboration with Dr. Yeboah. Please see addendum. History of Present Illness Chief Complaint: Nausea, vomiting, abdominal distention Primary Care Provider: Erika Causey MD This is a 69-year-old female with a PMH of CKD III, DM II, COPD, late onset Alzeimer's disease, pancreatic cyst, mood disorder and other medical problems listed below who presents with continued nausea and vomiting. The symptoms have been going on intermittently for the past few months with associated abdominal bloating. Has been following closely with Dr. Viera of gastroenterology group for possible ischemic colitis and pancreatic cyst. Has undergone multiple imaging tests with February 2018 colonoscopy concerning for appearance of possible ischemic colitis. Biopsies were taken and thought to be reactive sorts of tissue. When colonoscopy was repeated in April 2018, we biopsied tissue looked much improved. CT angio of the abdomen was then performed, which did not show any evidence of large vessel stenosis, but a very small pancreatic lesion was visualized. EUS suggested a small cystic lesion in the head of the pancreas that had fine-needle aspiration with benign pathology. Had a repeat CT of the abdomen pelvis performed in February 2019 that showed stable pancreatic cyst but with concern for a duodenal diverticulum versus normal pancreatic tissue and/or even a small solid lesion. A repeat EUS is scheduled at [facility] in May. Has had intermittent days of nausea and vomiting with decreased appetite. States that she vomits 1-2 times a day depending on how many meals she eats. Has some lower abdominal pain but seems to have been having normal bowel movements. Stools are dark in color but patient is on iron supplement. Hemoglobin has been stable. Was prescribed Bentyl by sheep shearer, but neither patient nor her think that patient has been taking that medication. Per , patient has seemed more confused and agitated than usual. Has also been having auditory/visual hallucinations. Was evaluated by Dr. Mckeon of neurology group in January 2019 and diagnosed with late onset Alzheimer's disease and was started on Aricept. Has also been less coordinated at home and endorses falls last week. Was evaluated in the ED with a normal head CT. Denies any fever, chills, headache, chest pain, palpitations, shortness of breath, dysuria or diarrhea. Allergies Allergy/AdvReac Type Severity Reaction Status Date / Time Cipro Allergy Unknown hives Verified 02/09/18 14:20 ciprofloxacin Allergy Unknown hives Verified 04/14/19 17:47 oxycodone Allergy Unknown hives; BUT Verified 04/14/19 17:47 PATIENT TAKES VICODIN W/O RXN Penicillins Allergy Unknown hives Verified 04/14/19 17:47 Home Medications Home Medications Medication Instructions Recorded Confirmed Type albuterol sulfate [Ventolin HFA] 2 puff INHALATION Q4H PRN 04/06/19 04/14/19 History aspirin [Aspir-81] 81 mg PO QAM 04/06/19 04/14/19 History bupropion HCl 150 mg PO AMHS 04/06/19 04/14/19 History buspirone 5 mg PO TID PRN 04/06/19 04/14/19 History cyanocobalamin (vitamin B-12) 1,000 mcg PO DAILY 04/06/19 04/14/19 History [Vitamin B-12] dicyclomine 10 mg PO TID PRN 04/06/19 04/14/19 History donepezil 5 mg PO HS 04/06/19 04/14/19 History duloxetine 20 mg PO QDL 04/06/19 04/14/19 History duloxetine 60 mg PO QDL 04/06/19 04/14/19 History fluticasone furoate-vilanterol 1 inh INHALATION DAILY PRN 04/06/19 04/14/19 History [Breo Ellipta] fluticasone propionate [Flonase 2 spray INTRANASAL DAILY PRN 04/06/19 04/14/19 History Allergy Relief] glipizide 2.5 mg PO DAILYBD 04/06/19 04/14/19 History hydrocodone-acetaminophen 0.5 tab PO DAILY PRN 04/06/19 04/14/19 History ipratropium-albuterol 3 ml INHALATION Q6H PRN 04/06/19 04/14/19 History lisinopril 20 mg PO QDL 04/06/19 04/14/19 History melatonin 3 mg PO HS 04/06/19 04/14/19 History metoprolol succinate 37.5 mg PO QAM 04/06/19 04/14/19 History omeprazole 20 mg PO BID 04/06/19 04/14/19 History ondansetron 8 mg TRANSLINGUAL Q8H PRN 04/06/19 04/14/19 History polyethylene glycol 3350 [Miralax] 17 g PO DAILY PRN 04/06/19 04/14/19 History promethazine 25 mg PO Q6H PRN 04/06/19 04/14/19 History repaglinide 0.5 mg PO UD 04/06/19 04/14/19 History rosuvastatin 40 mg PO QDL 04/06/19 04/14/19 History trazodone 50 mg PO HS 04/06/19 04/14/19 History wheat dextrin [Benefiber Healthy 0 g PO BID 04/06/19 04/14/19 History Shape] acetaminophen 1,000 mg PO Q12H PRN 04/14/19 04/14/19 History ferrous sulfate 325 mg PO HS 04/14/19 04/14/19 History Past Med/Surg History Medical History Multiple falls (Acute) Diabetes type 2, controlled (Chronic) HTN (hypertension) (Chronic) Depression (Chronic) HLD (hyperlipidemia) (Chronic) Amputated toe of right foot (Chronic) Spinal cord stimulator status (Chronic) Surgical History H/O colonoscopy (Chronic) History of cervical spinal surgery (Chronic) Family History Other Diabetes Heart disease Social History Preferred Language: Turkmen Communication Ability: Effective Visual Impairment: No Limitations Hearing Ability: Normal Pot Washer Required: No Beliefs That Will Affect Care: None marital status: marital status details: Current Living Situation: Spouse Current Living Situation Comment: with Other Information That Helps Us Care for You: No Feels Safe at Home: Yes Safety Concerns: Feels Safe At This Time Smoking Status: Former smoker Do You Dip or Chew Tobacco: No Smoking End Date: 2016 Hx Alcohol Use: No Hx Substance Use: No Review of Systems Review of Systems: At least ten systems reviewed and negative except as noted in the HPI. Physical Exam Physical Exam: General Appearance: WD/WN, no apparent distress, chronically ill-appearing woman Head: normocephalic, atraumatic Eyes: normal inspection, PERRL, EOMI ENT: hearing grossly normal, pharynx normal (moist mucous membranes) Neck: supple, no JVD, no adenopathy Respiratory/Chest: lungs clear to auscultation. No wheezes, rales or rhonci. No respiratory distress or accessory muscle use Cardiovascular: regular rate, rhythm, no murmur, normal peripheral pulses Abdomen/GI: normal bowel sounds, soft, mildly tender tender to palpation in RLQ, LLQ Extremities/Musculoskelatal: normal inspection, no calf tenderness, normal capillary refill, no pedal edema Neurologic/Psych: alert, anxious mood/affect, oriented x 3, poor insight Skin: normal color, warm/dry Results & Data Vital Signs (Past 12 Hours) Vital Signs Temp Pulse Resp BP Pulse Ox 04/14/19 19:50 92 H 18 04/14/19 19:40 86 20 04/14/19 19:30 78 25 H 139/66 04/14/19 19:20 90 21 04/14/19 19:10 87 21 04/14/19 19:00 89 27 H 125/77 04/14/19 18:50 88 16 04/14/19 18:40 86 18 04/14/19 18:30 83 21 134/81 04/14/19 18:21 99 H 19 04/14/19 18:10 89 21 04/14/19 18:00 90 17 122/82 04/14/19 17:50 86 20 04/14/19 17:40 87 14 04/14/19 17:32 87 14 04/14/19 17:30 88 22 115/69 04/14/19 17:25 87 19 120/71 04/14/19 16:25 36.5 C 9 L 20 108/72 99 Laboratory Results Short CBC 04/14/19 04/14/19 04/14/19 Range/Units 16:48 17:31 18:28 WBC 11.85 H (4.8-10.8) K/uL RBC 4.35 (4.2-5.4) M/uL Hgb 12.9 (12.0-16.0) g/dL Hct 38.0 (37-47) % MCV 87.4 (80-100) fL MCH 29.7 (25-34) pg MCHC 33.9 (32-36) g/dL RDW Std Deviation 48.2 H (36.4-46.3) fL RDW Coeff of Allen 15.1 H (11.5-14.5) % Plt Count 297 (130-400) K/uL MPV 10.0 (7.4-10.4) fL Immature Gran % (Auto) 0.3 % Neut % (Auto) 58.3 % Lymph % (Auto) 31.6 % [place] % (Auto) 7.9 % Eos % (Auto) 1.4 % Baso % (Auto) 0.5 % Immature Gran # (Auto) 0.03 H (0.00-0.02) K/uL Neut # (Auto) 6.91 H (1.4-6.5) K/uL Lymph # (Auto) 3.75 H (1.2-3.4) K/uL [place] # (Auto) 0.94 H (0.11-0.59) K/uL Eos # (Auto) 0.16 (0-0.5) K/uL Baso # (Auto) 0.06 (0-0.2) K/uL Sodium 134 L (136-145) mmol/L Potassium 5.3 H (3.5-5.1) mmol/L Chloride 105 (98-107) mmol/L Carbon Dioxide 20 L (21-32) mmol/L Anion Gap 9.0 (3-11) BUN 42 H (7-18) mg/dl Creatinine 3.24 H (0.6-1.2) mg/dl Est Cr Clr Drug Dosing Not Reportable Est GFR ( Amer) 15.8 Est GFR (Non-Af Amer) 13.7 BUN/Creatinine Ratio 12.9 (10-20) Glucose 149 H (70-99) mg/dl Calcium 10.1 (8.5-10.1) mg/dl Magnesium 1.9 (1.8-2.4) mg/dl Total Bilirubin 0.3 (0.2-1) mg/dl AST 21 (15-37) U/L ALT 24 (12-78) U/L Alkaline Phosphatase 116 (45-117) U/L Total Protein 7.9 (6.4-8.2) gm/dl Albumin 4.4 (3.4-5.0) gm/dl Globulin 3.5 (2.5-4.0) gm/dl Albumin/Globulin Ratio 1.3 (0.9-2) Lipase 170 (73-393) U/L TSH 1.880 (0.300-4.500) uIu/ml Urine Color Yellow Urine Appearance Cloudy A (Clear) Urine pH 5.0 (4.5-7.5) Ur Specific [place] 1.016 (1.000-1.030) Urine Protein 2+ H (Negative) Urine Glucose (UA) Negative (Negative) Urine Ketones Negative (Negative) Urine Blood 1+ H (Negative) Urine Nitrite Negative (Negative) Urine Bilirubin Negative (Negative) Urine Urobilinogen Negative (Negative) Ur Leukocyte Esterase Negative (Negative) Urine WBC (Auto) 10-30 H (0-5) /hpf Urine RBC (Auto) 0-4 (0-4) /hpf U Hyaline Cast (Auto) 5-10 H (0-5) /lpf U Epithel Cells (Auto) >30 H (0-5) /lpf Urine Bacteria (Auto) Negative (Negative) Ur Renal Epithelial Cell 0-5 (0-5) /lpf Granular Casts 10-20 H (0) /lpf Urine Yeast Not Reportable [facility] 04/14/19 17:31 Sodium 134 L Potassium 5.3 H Chloride 105 Carbon Dioxide 20 L BUN 42 H Creatinine 3.24 H Glucose 149 H Calcium 10.1 Liver Function 04/14/19 Range/Units 17:31 Total Bilirubin 0.3 (0.2-1) mg/dl AST 21 (15-37) U/L ALT 24 (12-78) U/L Alkaline Phosphatase 116 (45-117) U/L Albumin 4.4 (3.4-5.0) gm/dl Urine 04/14/19 Range/Units 18:28 Urine Color Yellow Urine Appearance Cloudy A (Clear) Urine pH 5.0 (4.5-7.5) Ur Specific [place] 1.016 (1.000-1.030) Urine Protein 2+ H (Negative) Urine Glucose (UA) Negative (Negative) Supervising Physician Co-Signing Physician Notes Patient is a 69-year-old female with history of CKD, diabetes, COPD, Alzheimer's dementia, pancreatic cyst letter problems presents with ongoing worsening nausea vomiting associated with abdominal bloating. Patient had extensive work-up as outpatient and follows with Dr. Viera. Please review HPI for complete details. Patient was recently thought to have findings suggestive of possible duodenal diverticulum versus possible pancreatic lesion and was planned to have endoscopic ultrasound in [place] in May. Patient states having dark-colored stools while on iron supplements. Patient has poor insight of her medical condition. As per the family patient has been having confusion, auditory and visual hallucinations and was recently evaluated by neurology and was diagnosed to have dementia. Patient was noted to have acute kidney injury, hyperkalemia, mild leukocytosis and abnormal UA. On exam patient is moderately built and nourished, no apparent distress, normocephalic atraumatic, lungs are clear to auscultation, S1-S2, no murmur, abdomen soft, mild tenderness suprapubic region, and right and left lower quadrants, grossly no focal neurological deficits. Patient is admitted for management of EDELMIRA, hyperkalemia and further ongoing nausea vomiting associated with abdominal bloating. Will hold lisinopril. Start on IV fluids, IV ceftriaxone for possible UTI. Will check renal ultrasound, bladder scan PRN. Consider GI eval if symptoms do not resolve. Antipsychotics likely contributing to nausea, vomiting, abdominal pain and confusion. Will consult psychiatry for possible polypharmacy. Monitor H&H. I personally reviewed the record. Patient is interviewed and examined at bedside. Patient's care is coordinated with Michelle Hardin PA-C. Please refer to the documentation above for details of patient's presentation and for discussion of other issues.
[2019-04-14] MEDS ORDERED: PROMETHAZINE HCL 25 MG TAB PO PRN (20:43)
[2019-04-14] MEDS ORDERED: POLYETHYLENE (MIRALAX) 17 GM PACK PO PRN (20:43)
[2019-04-14] MEDS ORDERED: ONDANSETRON INJ 2 MG/ML 2 ML VIAL IV PRN (20:43)
[2019-04-14] MEDS ORDERED: ALBUT/IPRATROP 3MG/0.5MG NEB 3 ML VIAL INH PRN (20:43)
[2019-04-14] MEDS ORDERED: ALBUTEROL HFA 8 GM INHALER INH PRN (20:43)
[2019-04-14] MEDS ORDERED: DICYCLOMINE HCL 10 MG CAP PO PRN (20:43)
[2019-04-14] MEDS ORDERED: FLUTICASONE PROPIONATE NA SPR 16 GM BTL NAE PRN (20:43)
[2019-04-14] MEDS ORDERED: GLUCOSE 10 TABS/TUBE PO PRN (20:48)
[2019-04-14] MEDS ORDERED: DEXTROSE 50% 50 ML SYRINGE IV PRN (20:48)
[2019-04-14] MEDS ORDERED: CARBOHYDRATES FOR HYPOGLYCEMIA PO PRN (20:48)
[2019-04-14] MEDS ORDERED: GLUCAGON FOR INJ 1 MG VIAL SQ PRN (20:48)
[2019-04-14] MEDS ORDERED: GLUCOSE 40% GEL 15 GM TUBE PO PRN (20:48)
[2019-04-14] MEDS: SODIUM CHLORIDE 0.9% 1000ML 1,000 ML IV SCH (21:30)
[2019-04-14] MEDS: INSULIN ASPART 100 UNITS/ML 3 ML PEN SC SCH (21:48)
[2019-04-14] MEDS: DONEPEZIL HCL 10 MG TAB PO SCH (21:54)
[2019-04-14] MEDS: PANTOprazole 40 MG TAB PO SCH (21:54)
[2019-04-14] MEDS: FERROUS SULFATE 325 MG TAB PO SCH (21:55)
[2019-04-14] MEDS: BuPROPion SR 150 MG TABCR PO SCH (21:55)
[2019-04-14] MEDS: HEPARIN SOD 5,000 UNIT/0.5 ML VIAL SQ SCH (21:56)
[2019-04-14] MEDS: cefTRIAXone SODIUM 1,000 MG in DEXTROSE 5% 50 ML IV SCH (22:26)
[2019-04-15] MEDS ORDERED: HALOPERIDOL 1 MG TAB PO STA (00:25)
--- NOTE | 2019-04-15 02:13 | Emergency Department Note ---
Entered by Kimberley Jeffrey acting as a scribe for PatrickGrisdarlin Taylor DO History of Present Illness General Chief complaint: Vomiting Stated complaint: WEAK, STOMACH ISSUES, NOT EATING, DEHYDRATED Time Seen by Provider: 04/14/19 16:30 Source: patient and family () History of Present Illness Onset (ago): month(s) 6 Location: abdomen Severity: similar to prior episodes Pain Consistency: + other (worsening ) Maximum Pain Intensity: 6 Quality: + other (vomiting ) Relieved By: + medication (joby seltzer ) Exacerbated By: + eating Associated symptoms: + confusion, + fever/chills, + nausea/vomiting, + weakness and + other (positive bloating; positive losing weight; positive difficulty swallowing; positive intermittent diarrhea; positive intermittent black stools; ); no cough Treatments prior to arrival: none The patient is a 69 year old female who presents to the Emergency Room with complaints of worsening vomiting that began about 6 months prior to arrival. The patient states that every time she eats she becomes bloated, then nauseous, and then vomits. Per the patient's , the patient has been losing weight and becoming increasingly weak because she is not eating to avoid the nausea and vomiting. Per the patient's , the patient is now having difficulty swa llowing pills without exacerbating her symptoms. The patient's states that the patient has had fever and chills during this time. Per the patient's , the patient has had intermittent diarrhea and black stools during this time. These are previously been thought to be due to her iron pills. The patient's states that the patient has become increasingly confused during this time, and states that the patient has intermittent agitation and frustration. Per the patient's , Azo has relieved the patient's confusion and joby seltzer has intermittently relieved her nausea and vomiting. The patient's states that the patient has not taken any nausea medications today. The patient's states that the patient sees Dr. Viera for her GI issues, and states that she has had two colonoscopies and two upper GI series previously. Patient is also scheduled for additional procedure on May 27. Both the and son states that the patient today is not confused, although seems to be in worse pain compared to usual. Home Medications Home Medications Medication Instructions Recorded Confirmed Type albuterol sulfate [Ventolin HFA] 2 puff INHALATION Q4H PRN 04/06/19 04/14/19 History aspirin [Aspir-81] 81 mg PO QAM 04/06/19 04/14/19 History bupropion HCl 150 mg PO AMHS 04/06/19 04/14/19 History buspirone 5 mg PO TID PRN 04/06/19 04/14/19 History cyanocobalamin (vitamin B-12) 1,000 mcg PO DAILY 04/06/19 04/14/19 History [Vitamin B-12] dicyclomine 10 mg PO TID PRN 04/06/19 04/14/19 History donepezil 5 mg PO HS 04/06/19 04/14/19 History duloxetine 20 mg PO QDL 04/06/19 04/14/19 History duloxetine 60 mg PO QDL 04/06/19 04/14/19 History fluticasone furoate-vilanterol 1 inh INHALATION DAILY PRN 04/06/19 04/14/19 History [Breo Ellipta] fluticasone propionate [Flonase 2 spray INTRANASAL DAILY PRN 04/06/19 04/14/19 History Allergy Relief] glipizide 2.5 mg PO DAILYBD 04/06/19 04/14/19 History hydrocodone-acetaminophen 0.5 tab PO DAILY PRN 04/06/19 04/14/19 History ipratropium-albuterol 3 ml INHALATION Q6H PRN 04/06/19 04/14/19 History lisinopril 20 mg PO QDL 04/06/19 04/14/19 History melatonin 3 mg PO HS 04/06/19 04/14/19 History metoprolol succinate 37.5 mg PO QAM 04/06/19 04/14/19 History omeprazole 20 mg PO BID 04/06/19 04/14/19 History ondansetron 8 mg TRANSLINGUAL Q8H PRN 04/06/19 04/14/19 History polyethylene glycol 3350 [Miralax] 17 g PO DAILY PRN 04/06/19 04/14/19 History promethazine 25 mg PO Q6H PRN 04/06/19 04/14/19 History repaglinide 0.5 mg PO UD 04/06/19 04/14/19 History rosuvastatin 40 mg PO QDL 04/06/19 04/14/19 History trazodone 50 mg PO HS 04/06/19 04/14/19 History wheat dextrin [Benefiber Healthy 0 g PO BID 04/06/19 04/14/19 History Shape] acetaminophen 1,000 mg PO Q12H PRN 04/14/19 04/14/19 History ferrous sulfate 325 mg PO HS 04/14/19 04/14/19 History Allergies Allergy/AdvReac Type Severity Reaction Status Date / Time Cipro Allergy Unknown hives Verified 02/09/18 14:20 ciprofloxacin Allergy Unknown hives Verified 04/14/19 17:47 oxycodone Allergy Unknown hives; BUT Verified 04/14/19 17:47 PATIENT TAKES VICODIN W/O RXN Penicillins Allergy Unknown hives Verified 04/14/19 17:47 Past Med/Surg History Medical History Multiple falls (Acute) Diabetes type 2, controlled (Chronic) HTN (hypertension) (Chronic) Depression (Chronic) HLD (hyperlipidemia) (Chronic) Amputated toe of right foot (Chronic) Spinal cord stimulator status (Chronic) Surgical History H/O colonoscopy (Chronic) History of cervical spinal surgery (Chronic) Family History Other Diabetes Heart disease Social History Preferred Language: Swedish Communication Ability: Effective Visual Impairment: No Limitations Hearing Ability: Normal Plant Tech Required: No Beliefs That Will Affect Care: None marital status: marital status details: Current Living Situation: Spouse Current Living Situation Comment: with Other Information That Helps Us Care for You: No Feels Safe at Home: Yes Safety Concerns: Feels Safe At This Time Smoking Status: Former smoker Do You Dip or Chew Tobacco: No Smoking End Date: 2016 Hx Alcohol Use: No Hx Substance Use: No Review of Systems See HPI for pertinent positives & negatives. and A total of 10 systems reviewed and were otherwise negative Physical Exam Vital Signs Vital Signs - 24 hr 04/14/19 16:25 04/14/19 17:25 04/14/19 17:30 Temperature 36.5 C Temperature Source Oral Sepsis Recent Fever Within 48 Hours No Sepsis Action Taken by Nursing No Action Required Pulse Rate 9 L 87 88 Respiratory Rate 20 19 22 Respiratory Effort / Characteristics Non-Labored Respiratory Depth Normal Respiratory Pattern Regular Blood Pressure 108/72 120/71 115/69 Blood Pressure Mean 84 87 84 Blood Pressure Position Sitting Pulse Oximetry 99 Oxygen Delivery Method Room Air 04/14/19 17:32 04/14/19 17:40 04/14/19 17:50 Temperature Temperature Source Sepsis Recent Fever Within 48 Hours Sepsis Action Taken by Nursing Pulse Rate 87 87 86 Respiratory Rate 14 14 20 Respiratory Effort / Characteristics Respiratory Depth Respiratory Pattern Blood Pressure Blood Pressure Mean Blood Pressure Position Pulse Oximetry Oxygen Delivery Method 04/14/19 18:00 04/14/19 18:10 04/14/19 18:21 Temperature Temperature Source Sepsis Recent Fever Within 48 Hours Sepsis Action Taken by Nursing Pulse Rate 90 89 99 H Respiratory Rate 17 21 19 Respiratory Effort / Characteristics Respiratory Depth Respiratory Pattern Blood Pressure 122/82 Blood Pressure Mean 95 Blood Pressure Position Pulse Oximetry Oxygen Delivery Method 04/14/19 18:30 04/14/19 18:40 04/14/19 18:50 Temperature Temperature Source Sepsis Recent Fever Within 48 Hours Sepsis Action Taken by Nursing Pulse Rate 83 86 88 Respiratory Rate 21 18 16 Respiratory Effort / Characteristics Respiratory Depth Respiratory Pattern Blood Pressure 134/81 Blood Pressure Mean 98 Blood Pressure Position Pulse Oximetry Oxygen Delivery Method 04/14/19 19:00 04/14/19 19:10 04/14/19 19:20 Temperature Temperature Source Sepsis Recent Fever Within 48 Hours Sepsis Action Taken by Nursing Pulse Rate 89 87 90 Respiratory Rate 27 H 21 21 Respiratory Effort / Characteristics Respiratory Depth Respiratory Pattern Blood Pressure 125/77 Blood Pressure Mean 93 Blood Pressure Position Pulse Oximetry Oxygen Delivery Method 04/14/19 19:30 04/14/19 19:40 04/14/19 19:50 Temperature Temperature Source Sepsis Recent Fever Within 48 Hours Sepsis Action Taken by Nursing Pulse Rate 78 86 92 H Respiratory Rate 25 H 20 18 Respiratory Effort / Characteristics Respiratory Depth Respiratory Pattern Blood Pressure 139/66 Blood Pressure Mean 90 Blood Pressure Position Pulse Oximetry Oxygen Delivery Method 04/14/19 20:00 Temperature Temperature Source Sepsis Recent Fever Within 48 Hours Sepsis Action Taken by Nursing Pulse Rate 106 H Respiratory Rate 21 Respiratory Effort / Characteristics Respiratory Depth Respiratory Pattern Blood Pressure Blood Pressure Mean Blood Pressure Position Pulse Oximetry Oxygen Delivery Method GENERAL: alert, well appearing, well nourished, no distress, non-toxic EYE EXAM: normal conjunctiva, PERRL and EOM's grossly intact OROPHARYNX: no exudate, no erythema, lips, buccal mucosa, and tongue normal and mucous membranes are moist NECK: supple, no nuchal rigidity, no adenopathy, non-tender LUNGS: Clear to auscultation. Normal chest wall mechanics, no w/r/r HEART: no murmurs, S1 normal and S2 normal ABDOMEN: abdomen soft, non-tender, normo-active bowel sounds, no masses, no rebound or guarding. BACK: Back is symmetrical on inspection and there is no deformity, no midline tenderness, no CVA tenderness. SKIN: no rashes and no bruising, no petechiae UPPER EXTREMITIES: upper extremities are grossly normal. FROM, nml pulses b/l. LOWER EXTREMITIES: No pitting edema. FROM, nml pulses b/l. NEURO EXAM: Normal sensorium, cranial nerves II-XII grossly intact, normal speech, no gross weakness of arms, no gross weakness of legs. Course 1631: Past medical records reviewed. The patient was evaluated in room B12B. A complete history and physical exam was performed. 1710: Reviewed recent GI notes in EMR. 1717: I discussed the case with Dr. Wallace and reviewed the patient's history and current presentation. 1726: I updated the patient and her family. 1809: I updated the patient and her family on all results. The patient is giving a urine sample. 1819: I discussed the case with Michelle Conde PA-C who accepted the patient for further evaluation. Consultations Consultation #1: I discussed the case with Michelle Conde PA-C who accepted the patient for further evaluation. Time: 18:19 Administered Medications Bupropion HCl (Wellbutrin-Sr) 150 mg PO BID [facility] Stop: 05/14/19 20:59 Last Admin: 04/14/19 21:55 Dose: 150 mg Documented by: [id number] Donepezil HCl (Aricept) 5 mg PO HS [facility]YLA Stop: 05/14/19 20:59 Last Admin: 04/14/19 21:54 Dose: 5 mg Documented by: [id number] Ferrous Sulfate (Feosol) 325 mg PO HS AYLA Stop: 05/14/19 20:59 Last Admin: 04/14/19 21:55 Dose: 325 mg Documented by: [id number] Heparin Sodium (Porcine) (Heparin Sodium (Porcine)) 5,000 units SQ Q12 AYLA; Protocol Stop: 05/14/19 20:59 Last Admin: 04/14/19 21:56 Dose: 5,000 units Documented by: [id number] Cosigned by: [id number] Sodium Chloride (Nss 1000ml) 1,000 mls @ 125 mls/hr IV .Q8H AYLA Stop: 05/14/19 20:42 Last Infusion: 04/14/19 23:02 Dose: 125 mls/hr Documented by: [id number] Infusion: 04/14/19 22:26 Dose: 0 mls/hr Documented by: [id number] Admin: 04/14/19 21:30 Dose: 125 mls/hr Documented by: [id number] Ceftriaxone Sodium 1,000 mg/ (Dextrose) 60 mls @ 100 mls/hr IV DAILY@2100 AYLA; Protocol Stop: 04/19/19 22:29 Last Infusion: 04/14/19 23:02 Dose: 0 mls/hr Documented by: [id number] Admin: 04/14/19 22:26 Dose: 100 mls/hr Documented by: [id number] Insulin Aspart (Novolog Flexpen) 0 units SC ACHS AYLA Stop: 05/14/19 20:59 Last Admin: 04/14/19 21:48 Dose: Not Given Documented by: [id number] Cosigned by: [id number] Pantoprazole Sodium (Protonix) 40 mg PO BID AYLA Stop: 05/14/19 20:59 Last Admin: 04/14/19 21:54 Dose: 40 mg Documented by: [id number] Discontinued Medications Famotidine (Pepcid 20mg Iv Push) 20 mg IV ONE STA Stop: 04/14/19 17:26 Last Admin: 04/14/19 17:36 Dose: 20 mg Documented by: [id number] Haloperidol (Haldol) 1 mg PO NOW STA Stop: 04/15/19 00:26 Last Admin: 04/15/19 00:40 Dose: 1 mg Documented by: [id number] Sodium Chloride (Nss 1000ml) 1,000 mls @ 250 mls/hr IV .Q4H AYLA Stop: 05/14/19 16:59 Last Infusion: 04/14/19 20:49 Dose: 0 mls/hr Documented by: [id number] Admin: 04/14/19 17:32 Dose: 250 mls/hr Documented by: [id number] Ondansetron HCl (Zofran) 4 mg IV NOW STA Stop: 04/14/19 16:49 Last Admin: 04/14/19 17:26 Dose: 4 mg Documented by: [id number] Medical Decision Making Differential Diagnosis Differential diagnosis: Etiologies such as gastroenteritis, food borne illness, infections, appendicitis, diverticulitis, inflammatory bowel disease, obstruction, GI bleed, biliary pathology, as well as others were entertained. Medical Records Attestation: I reviewed the patient's medical records. Home Medications Current Medication List: was personally reviewed by me Laboratory Data Attestation: I reviewed the patient's lab results. Result diagrams: 04/14/19 16:48 04/14/19 17:31 Lab Results 04/14/19 04/14/19 04/14/19 Range/Units 16:48 17:31 18:28 WBC 11.85 H (4.8-10.8) K/uL RBC 4.35 (4.2-5.4) M/uL Hgb 12.9 (12.0-16.0) g/dL Hct 38.0 (37-47) % MCV 87.4 (80-100) fL MCH 29.7 (25-34) pg MCHC 33.9 (32-36) g/dL RDW Std Deviation 48.2 H (36.4-46.3) fL RDW Coeff of Allen 15.1 H (11.5-14.5) % Plt Count 297 (130-400) K/uL MPV 10.0 (7.4-10.4) fL Immature Gran % (Auto) 0.3 % Neut % (Auto) 58.3 % Lymph % (Auto) 31.6 % [place] % (Auto) 7.9 % Eos % (Auto) 1.4 % Baso % (Auto) 0.5 % Immature Gran # (Auto) 0.03 H (0.00-0.02) K/uL Neut # (Auto) 6.91 H (1.4-6.5) K/uL Lymph # (Auto) 3.75 H (1.2-3.4) K/uL [place] # (Auto) 0.94 H (0.11-0.59) K/uL Eos # (Auto) 0.16 (0-0.5) K/uL Baso # (Auto) 0.06 (0-0.2) K/uL Sodium 134 L (136-145) mmol/L Potassium 5.3 H (3.5-5.1) mmol/L Chloride 105 (98-107) mmol/L Carbon Dioxide 20 L (21-32) mmol/L Anion Gap 9.0 (3-11) BUN 42 H (7-18) mg/dl Creatinine 3.24 H (0.6-1.2) mg/dl Est Cr Clr Drug Dosing Not Reportable Est GFR ( Amer) 15.8 Est GFR (Non-Af Amer) 13.7 BUN/Creatinine Ratio 12.9 (10-20) Glucose 149 H (70-99) mg/dl Calcium 10.1 (8.5-10.1) mg/dl Magnesium 1.9 (1.8-2.4) mg/dl Total Bilirubin 0.3 (0.2-1) mg/dl AST 21 (15-37) U/L ALT 24 (12-78) U/L Alkaline Phosphatase 116 (45-117) U/L Total Protein 7.9 (6.4-8.2) gm/dl Albumin 4.4 (3.4-5.0) gm/dl Globulin 3.5 (2.5-4.0) gm/dl Albumin/Globulin Ratio 1.3 (0.9-2) Lipase 170 (73-393) U/L TSH 1.880 (0.300-4.500) uIu/ml Urine Color Yellow Urine Appearance Cloudy A (Clear) Urine pH 5.0 (4.5-7.5) Ur Specific [place] 1.016 (1.000-1.030) Urine Protein 2+ H (Negative) Urine Glucose (UA) Negative (Negative) Urine Ketones Negative (Negative) Urine Blood 1+ H (Negative) Urine Nitrite Negative (Negative) Urine Bilirubin Negative (Negative) Urine Urobilinogen Negative (Negative) Ur Leukocyte Esterase Negative (Negative) Urine WBC (Auto) 10-30 H (0-5) /hpf Urine RBC (Auto) 0-4 (0-4) /hpf U Hyaline Cast (Auto) 5-10 H (0-5) /lpf U Epithel Cells (Auto) >30 H (0-5) /lpf Urine Bacteria (Auto) Negative (Negative) Ur Renal Epithelial Cell 0-5 (0-5) /lpf Granular Casts 10-20 H (0) /lpf Urine Yeast Not Reportable Blood Pressure Blood Pressure Findings: Normal blood pressure MDM Narrative Patient here ill-appearing complaining of recurrent abdominal distention, nausea and vomiting. This is been ongoing issue intermittently for the patient over the last 6 months. She has been seen and evaluated had multiple test performed by Dr. viera, GI. Patient is also been referred to [facility] for additional testing. I was able to review some of these notes in the EMR, and discussed this with patient and family at bedside. I did contact Dr. viera regarding the patient's ongoing symptoms. He did not feel additional imaging was warranted at this time. Patient cannot undergo MRI due to implanted spinal stimulator. Patient here found to be in new renal failure, likely secondary to dehydration and poor p.o. intake due to recurrent nausea vomiting. Given recent CT imaging which showed anatomically normal kidneys, I did not perform repeat renal imaging. UA unremarkable did not reveal any occult infection. Patient was started on IV fluids in the emergency room, she and family were updated on all results and plan for additional inpatient management. Case was discussed with hospitalist team who were in agreement with plan. Impression & Plan Acute renal failure, Dehydration, Vomiting, Nausea Discharge Plan Visit Data *Final* Discharge Date/Time: 04/14/19 20:30 Chief Complaint: Vomiting Stated Complaint: WEAK, STOMACH ISSUES, NOT EATING, DEHYDRATED ED Provider: Gris Nguyen Discharge Problem: Acute renal failure, Dehydration, Vomiting, Nausea Patient Disposition: Admitted As Inpatient Discharge Instructions Interventions: ED Discharge Assessment Last Done: 04/14/19 20:30 The scribe's documentation has been prepared under my direction and personally reviewed by me in its entirety. I confirm that the note above accurately reflects all work, treatment, procedures, and medical decision making performed by me.
[2019-04-15] MEDS: SODIUM CHLORIDE 0.9% 1000ML 1,000 ML IV SCH ×2 (05:54→14:42)
[2019-04-15 08:11] LABS: Hemoglobin 10.4 g/dL (12.0-16.0); Mean Corpuscular Hgb Conc 32.5 g/dL (32-36); Mean Corpuscular Volume 88.4 fL (80-100); Mean Platelet Volume 10.1 fL (7.4-10.4); Platelet Count 245 K/uL (130-400); RDW Coefficient of Variation 15.2 % (11.5-14.5); RDW Standard Deviation 49.3 fL (36.4-46.3); Red Blood Count 3.62 M/uL (4.2-5.4); White Blood Count 7.34 K/uL (4.8-10.8)
[2019-04-15 08:45] LABS: BUN Creatinine Ratio 12.9 (10-20); Calcium 8.8 mg/dl (8.5-10.1); Creatinine Clr Calc Pharmacy 17.7 ml/min; Est GFR (African American) 20.4; Est GFR (Non-African American) 17.6
[2019-04-15] MEDS: CYANOCOBALAMIN 500 MCG TABLET (VITAMIN B-12) PO SCH (08:45)
[2019-04-15] MEDS: PANTOprazole 40 MG TAB PO SCH ×2 (08:45→20:44)
[2019-04-15] MEDS: ASPIRIN 81 MG ECTAB PO SCH (08:46)
[2019-04-15] MEDS: BuPROPion SR 150 MG TABCR PO SCH (08:46)
[2019-04-15] MEDS: HEPARIN SOD 5,000 UNIT/0.5 ML VIAL SQ SCH ×2 (08:48→20:47)
[2019-04-15] MEDS: INSULIN ASPART 100 UNITS/ML 3 ML PEN SC SCH ×4 (08:51→20:47)
--- NOTE | 2019-04-15 11:27 | Ultrasound Report ---
US renal/blad retro comp HISTORY: 69 years-old Female EDELMIRA acute kidney injury COMPARISON: CT abdomen and pelvis 02/21/2018 TECHNIQUE: Multiple real-time sonographic images of the kidneys and urinary bladder were obtained ass essing grayscale appearance and color flow FINDINGS: The right kidney measures 9.0 cm in length and demonstrates no renal calculi, hydronephrosis or suspi cious mass lesion identified. Left kidney measures 8.9 cm in length and also demonstrates no renal ca lculi, hydronephrosis or suspicious mass lesion. 8 mm cyst of the interpolar left kidney. There is mi ld cortical thinning noted about the bilateral kidneys. Urinary bladder is unremarkable with only the right ureteral jet noted. IMPRESSION: 1. Mild cortical thinning of the bilateral kidneys without renal calculi or hydronephrosis. 2. 8 mm left renal cyst. 3. Unremarkable urinary bladder. The above report was generated using voice recognition software. It may contain grammatical, syntax o r spelling errors. Electronically signed by: Juan Jensen M.D. 04/15/2019 11:26 AM
[2019-04-15] MEDS ORDERED: DULOXETINE HCL 60 MG CAP PO SCH (11:30)
[2019-04-15] MEDS ORDERED: DULOXETINE HCL 20 MG CAP PO SCH (11:30)
[2019-04-15] MEDS: ROSUVASTATIN CALCIUM 20 MG TAB PO SCH (13:00)
--- NOTE | 2019-04-15 13:56 | Hospitalist Progress Note ---
Date of Service April 15, 2019 Assessment & Plan (1) Acute kidney injury superimposed on chronic kidney disease: Possible related to dehydration from poor oral intake/nausea and vomiting Creatinine elevated at 3.24 with BUN of 42 on admission renal U/S showed mild cortical thinning of the bilateral kidneys without renal calculi or hydronephrosis. 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 ED physician discussed with Dr. Viera. Does not feel that any further imaging is needed at this time. Continue Conrad Arzateyl (4) Multiple falls: Due to weakness Continue PT/OT Fall precaution (5) Hallucination, visual: (6) Auditory hallucinations: History of depression and anxiety and is currently taking bupropion, BuSpar, duloxetine and trazodone Continue holding trazodone and hydrocodone for now Psych eval pending (7) Mood disorder: Continue Bupropion and buspar Psych on board (8) HTN (hypertension): BP controlled Continue holding lisinopril in setting of acute kidney injury Continue monitor BP (9) Diabetes type 2, controlled: A1c of 6.6 in Oct 2018. Hba1c pending On insulin sliding scale Monitor BS (10) Alzheimer's disease: Continue Aricept Stable Elevated WBC WBC 11K on admission UA negative for nitrite/Leukocytes/bacteria Afebrile, WBC trending down Denies any urinary symptoms urine cx pending Received Rocephin IV Will d/c abx if cx negative DVT Ppx: SQ heparin Code status: FULL Dispo: Possible discharge tomorrow Subjective Pt was seen and examined Sitting in chair with no distress Pt said that she did not vomit today She said that she feels alittle better She said that nausea occurs depending on the type of food she eats Denies any chest pain, palpitation, dizziness and SOB Physical Exam Physical Exam: General- No acute distress Head- atraumatic Eyes- PERRL, EOMI, ENT- oropharynx clear Neck- supple, no JVD Lungs- clear to auscultation Heart- regular rhythm; no murmur Abdomen- normal bowel sounds, soft, nontender Extremities- no calf tenderness Neuro- alert, oriented x 3; PERRL, EOMI; no facial palsy; no dysarthria Skin- warm & dry Results & Data Vital Signs (Past 12 Hours) Vital Signs Temp Pulse Pulse Resp BP BP Pulse Ox 04/15/19 12:06 36.9 C 89 16 115/70 98 04/15/19 11:19 88 04/15/19 07:47 36.5 C 91 H 16 113/69 96 04/15/19 04:07 36.7 C 95 H 18 96/61 L 93
--- NOTE | 2019-04-15 16:21 | Psychiatric Consultation ---
Date of Consultation April 15, 2019 Impression / Recommendations Impression 69 yr old with dx'd recently dx'd dementia, aricpet 5mg added perhaps just over 2m onths ago, 6 or so months of GI smyptoms, CKD3 with worsening CR that is improving some with this admission to date. AH/VH/TH past few weeks, cymbalta 80mg qday, wellbutrin sr 150mg am and hs, buspar prn with unclear of how much taking it, trazodone 50mg hs prn but might not be taking it much at all but not certain, and pt had betyl that might take 1-2 times a day (10mg each) with varying reprots of frequency of taking it in recent past. P: would advise stopping bentyl as has notable anticholergeic proepries and can wo rsen confusion and precipate or aggravate halluicinations concerns. lowered wellbutrin sr to 150mg am only, to help reduce psychiatric medications and 2nd dose (carol at bedtime) can worsen sleep and wellbutrin sr does have some milder antichloeergic properties would advise stopping trazodone as can bring out orthostatci hypotension and uncealr if /when pt taking this med and other med adjsutments might help with sleep concerns with then less need for a sleep assisting med hopefully. lowered cymablta to 40mg a day for now given her severe renal impairment. This med is reaosnable for moderate renal impiaremnt but at severe impiarment it is one advised to not be used given the fact that its major metabolics are renally excreted. If renal impairemnts continues to be severe would advise weaning fully of this med with conisderation of a replacement medication that would be more appropaite. buspar 5mg tid prn for now but would advise trying to clarify fif pt actually taking this med on a prn basis and if is an alleivating medication and if not would advise stopping med to help limit polypharmayc concerns. monioring kidney function Psych History Chief Complaint psych consulted over Auditory hallucaintions and psychiatric polypharmacy concerns . History of Present Illness This is a 69-year-old female with a PMH of CKD III, DM II, COPD, late onset Alzeimer's disease, pancreatic cyst, mood disorder who presented with continued nausea and vomiting. The symptoms have been going on intermittently for the past few months with associated abdominal bloating. Has been following closely with Dr. Viera of gastroenterology group for possible ischemic colitis and pancreatic cyst. Has undergone multiple imaging tests with February 2018 colonoscopy concerning for appearance of possible ischemic colitis. Has had intermittent days of nausea and vomiting with decreased appetite. States that she vomits 1-2 times a day depending on how many meals she eats. Has some lower abdominal pain but seems to have been having normal bowel movements. Stools are dark in color but patient is on iron supplement. Hemoglobin has been stable. Was prescribed Bentyl by mortgage professional, but neither patient nor her think that patient has been taking that medication. Per , patient might have been improving in her confusion as aricpet added in January 2019, with some worsening of confusion recently. However past 2-3 weeks ahving AH of music and VH of seeing pupiies and TH of atelast one time of feeling cobwebs on her face. was started on Aricept. Has also been less coordinated at home and endorses 3 falls in recent past elevated Cr up to 3.24 that is trending downard currently after raising up in tecent past. psych meds are 80mg of cymbalta a day, wellbutrin er 150mg 1 po am and 1 po qhs, busapr 5mg 1 prn up to tid, might not take much at all and pt nor has cease of when/why she might take if she does in recent past, and trazodone 50mg hs prn but seems ot not take often at all despite tendency ot have trouble with her sleep. Of note pt rx'd bentyl for GI concerns 10mg prn up to tid, pt and hsuband thinks she does not take often but might take 1-2 times a day most days? (they are not sure) Husabnd under impression parkinsons was a ocnsideration given her trouble walking in recent past Allergies Allergy/AdvReac Type Severity Reaction Status Date / Time Cipro Allergy Unknown hives Verified 02/09/18 14:20 ciprofloxacin Allergy Unknown hives Verified 04/14/19 17:47 oxycodone Allergy Unknown hives; BUT Verified 04/14/19 17:47 PATIENT TAKES VICODIN W/O RXN Penicillins Allergy Unknown hives Verified 04/14/19 17:47 Home Medications Home Medications Medication Instructions Recorded Confirmed Type albuterol sulfate [Ventolin HFA] 2 puff INHALATION Q4H PRN 04/06/19 04/14/19 History aspirin [Aspir-81] 81 mg PO QAM 04/06/19 04/14/19 History bupropion HCl 150 mg PO AMHS 04/06/19 04/14/19 History buspirone 5 mg PO TID PRN 04/06/19 04/14/19 History cyanocobalamin (vitamin B-12) 1,000 mcg PO DAILY 04/06/19 04/14/19 History [Vitamin B-12] dicyclomine 10 mg PO TID PRN 04/06/19 04/14/19 History donepezil 5 mg PO HS 04/06/19 04/14/19 History duloxetine 20 mg PO QDL 04/06/19 04/14/19 History duloxetine 60 mg PO QDL 04/06/19 04/14/19 History fluticasone furoate-vilanterol 1 inh INHALATION DAILY PRN 04/06/19 04/14/19 History [Breo Ellipta] fluticasone propionate [Flonase 2 spray INTRANASAL DAILY PRN 04/06/19 04/14/19 History Allergy Relief] glipizide 2.5 mg PO DAILYBD 04/06/19 04/14/19 History hydrocodone-acetaminophen 0.5 tab PO DAILY PRN 04/06/19 04/14/19 History ipratropium-albuterol 3 ml INHALATION Q6H PRN 04/06/19 04/14/19 History lisinopril 20 mg PO QDL 04/06/19 04/14/19 History melatonin 3 mg PO HS 04/06/19 04/14/19 History metoprolol succinate 37.5 mg PO QAM 04/06/19 04/14/19 History omeprazole 20 mg PO BID 04/06/19 04/14/19 History ondansetron 8 mg TRANSLINGUAL Q8H PRN 04/06/19 04/14/19 History polyethylene glycol 3350 [Miralax] 17 g PO DAILY PRN 04/06/19 04/14/19 History promethazine 25 mg PO Q6H PRN 04/06/19 04/14/19 History repaglinide 0.5 mg PO UD 04/06/19 04/14/19 History rosuvastatin 40 mg PO QDL 04/06/19 04/14/19 History trazodone 50 mg PO HS 04/06/19 04/14/19 History wheat dextrin [Benefiber Healthy 0 g PO BID 04/06/19 04/14/19 History Shape] acetaminophen 1,000 mg PO Q12H PRN 04/14/19 04/14/19 History ferrous sulfate 325 mg PO HS 04/14/19 04/14/19 History Personal History Beliefs That Will Affect Care: None Patient History Medical History Multiple falls (Acute) Diabetes type 2, controlled (Chronic) HTN (hypertension) (Chronic) Depression (Chronic) HLD (hyperlipidemia) (Chronic) Amputated toe of right foot (Chronic) Spinal cord stimulator status (Chronic) Surgical History H/O colonoscopy (Chronic) History of cervical spinal surgery (Chronic) Family History Other Diabetes Heart disease Social History Preferred Language: Bol[place]ian Communication Ability: Effective Visual Impairment: No Limitations Hearing Ability: Normal 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 Beliefs That Will Affect Care: None marital status: marital status details: Current Living Situation: Spouse Current Living Situation Comment: with Other Information That Helps Us Care for You: No Feels Safe at Home: Yes Safety Concerns: Feels Safe At This Time Smoking Status: Former smoker Do You Dip or Chew Tobacco: No Smoking End Date: 2016 Hx Alcohol Use: No Hx Substance Use: No Physical Exam Vital Signs (Past 24 Hours): Last Vital Signs Temp 36.9 C 04/15/19 12:06 Pulse 98 H 04/15/19 15:00 Resp 16 04/15/19 12:06 BP 115/70 04/15/19 12:06 Pulse Ox 98 04/15/19 12:06 Results & Data Medications Administered Aspirin (Ecotrin Ectab) 81 mg PO QAM [facility] Stop: 05/15/19 08:59 Last Admin: 04/15/19 08:46 Dose: 81 mg Documented by: [id number] Cyanocobalamin (Vitamin B-12) 1,000 mcg PO DAILY [facility] Stop: 05/15/19 08:59 Last Admin: 04/15/19 08:45 Dose: 1,000 mcg Documented by: [id number] Donepezil HCl (Aricept) 5 mg PO HS [facility] Stop: 05/14/19 20:59 Last Admin: 04/14/19 21:54 Dose: 5 mg Documented by: [id number] Duloxetine HCl (Cymbalta) 20 mg PO QDL [facility] Stop: 05/15/19 11:29 Last Admin: 04/15/19 13:01 Dose: 20 mg Documented by: [id number] Duloxetine HCl (Cymbalta) 60 mg PO QDL [facility] Stop: 05/15/19 11:29 Last Admin: 04/15/19 13:00 Dose: 60 mg Documented by: [id number] Ferrous Sulfate (Feosol) 325 mg PO HS [facility] Stop: 05/14/19 20:59 Last Admin: 04/14/19 21:55 Dose: 325 mg Documented by: [id number] Heparin Sodium (Porcine) (Heparin Sodium (Porcine)) 5,000 units SQ Q12 [facility]; Protocol Stop: 05/14/19 20:59 Last Admin: 04/15/19 08:48 Dose: 5,000 units Documented by: [id number] Cosigned by: [id number] Admin: 04/14/19 21:56 Dose: 5,000 units Documented by: [id number] Cosigned by: [id number] Sodium Chloride (Nss 1000ml) 1,000 mls @ 80 mls/hr IV .[id number] [facility] Stop: 05/14/19 20:42 Last Infusion: 04/15/19 15:45 Dose: 80 mls/hr Documented by: [id number] Admin: 04/15/19 14:42 Dose: 125 mls/hr Documented by: [id number] Infusion: 04/15/19 13:54 Dose: 125 mls/hr Documented by: [id number] Admin: 04/15/19 05:54 Dose: 125 mls/hr Documented by: [id number] Infusion: 04/15/19 05:54 Dose: 125 mls/hr Documented by: [id number] Infusion: 04/14/19 23:02 Dose: 125 mls/hr Documented by: [id number] Infusion: 04/14/19 22:26 Dose: 0 mls/hr Documented by: [id number] Admin: 04/14/19 21:30 Dose: 125 mls/hr Documented by: [id number] Ceftriaxone Sodium 1,000 mg/ (Dextrose) 60 mls @ 100 mls/hr IV DAILY@2100 [facility]; Protocol Stop: 04/19/19 22:29 Last Infusion: 04/14/19 23:02 Dose: 0 mls/hr Documented by: [id number] Admin: 04/14/19 22:26 Dose: 100 mls/hr Documented by: [id number] Insulin Aspart (Novolog Flexpen) 0 units SC ACHS [facility] Stop: 05/14/19 20:59 Last Admin: 04/15/19 13:05 Dose: 4 units Documented by: [id number] Cosigned by: [id number] Admin: 04/15/19 08:51 Dose: 3 units Documented by: [id number] Cosigned by: [id number] Admin: 04/14/19 21:48 Dose: Not Given Documented by: [id number] Cosigned by: [id number] Miscellaneous (Order Awaiting Action) 1 ea N/A QS [facility] Stop: 05/15/19 07:59 Last Admin: 04/15/19 15:09 Dose: Not Given Documented by: [id number] Admin: 04/15/19 08:48 Dose: Not Given Documented by: [id number] Miscellaneous (Order Awaiting Action) 1 ea N/A [facility] Stop: 05/15/19 07:59 Last Admin: 04/15/19 15:09 Dose: Not Given Documented by: [id number] Admin: 04/15/19 08:49 Dose: Not Given Documented by: [id number] Pantoprazole Sodium (Protonix) 40 mg PO BID [facility] Stop: 05/14/19 20:59 Last Admin: 04/15/19 08:45 Dose: 40 mg Documented by: [id number] Admin: 04/14/19 21:54 Dose: 40 mg Documented by: [id number] Rosuvastatin Calcium (Crestor) 40 mg PO QDL [facility] Stop: 05/15/19 11:29 Last Admin: 04/15/19 13:00 Dose: 40 mg Documented by: [id number]
[2019-04-15] MEDS: DONEPEZIL HCL 10 MG TAB PO SCH (20:42)
[2019-04-15] MEDS: FERROUS SULFATE 325 MG TAB PO SCH (20:43)
[2019-04-15] MEDS: cefTRIAXone SODIUM 1,000 MG in DEXTROSE 5% 50 ML IV SCH (20:45)
[2019-04-15] MEDS: ACETAMINOPHEN 500 MG TAB PO PRN (23:55)
[2019-04-16] MEDS: SODIUM CHLORIDE 0.9% 1000ML 1,000 ML IV SCH ×2 (04:00→17:06)
[2019-04-16 06:15] LABS: Hematocrit (blood only) 32.5 % (37-47); Hemoglobin 10.8 g/dL (12.0-16.0); Mean Corpuscular Hgb Conc 33.2 g/dL (32-36); Mean Corpuscular Volume 86.4 fL (80-100); Mean Platelet Volume 10.1 fL (7.4-10.4); Platelet Count 230 K/uL (130-400); RDW Coefficient of Variation 14.9 % (11.5-14.5); RDW Standard Deviation 46.5 fL (36.4-46.3); Red Blood Count 3.76 M/uL (4.2-5.4); White Blood Count 5.73 K/uL (4.8-10.8)
[2019-04-16 06:53] LABS: BUN Creatinine Ratio 12.5 (10-20); Calcium 9.3 mg/dl (8.5-10.1); Creatinine Clr Calc Pharmacy 19.8 ml/min; Est GFR (African American) 23.5; Est GFR (Non-African American) 20.3; Potassium 4.9 mmol/L (3.5-5.1)
[2019-04-16 07:06] LABS: Estimated Average Glucose 163 mg/dl; Hemoglobin A1C 7.3 % (4.5-5.6)
[2019-04-16] MEDS: BuPROPion SR 150 MG TABCR PO SCH (08:31)
[2019-04-16] MEDS: CYANOCOBALAMIN 500 MCG TABLET (VITAMIN B-12) PO SCH (08:34)
[2019-04-16] MEDS: PANTOprazole 40 MG TAB PO SCH ×2 (08:34→21:08)
[2019-04-16] MEDS: ASPIRIN 81 MG ECTAB PO SCH (08:34)
[2019-04-16] MEDS: HEPARIN SOD 5,000 UNIT/0.5 ML VIAL SQ SCH ×2 (08:35→21:19)
[2019-04-16] MEDS: INSULIN ASPART 100 UNITS/ML 3 ML PEN SC SCH ×5 (08:38→21:18)
[2019-04-16] MEDS: DULOXETINE HCL 20 MG CAP PO SCH (12:44)
[2019-04-16] MEDS: ROSUVASTATIN CALCIUM 20 MG TAB PO SCH (13:49)
--- NOTE | 2019-04-16 17:44 | Hospitalist Progress Note ---
Date of Service April 16, 2019 Assessment & Plan (1) Acute kidney injury superimposed on chronic kidney disease: Possible related to dehydration from poor oral intake/nausea and vomiting Creatinine elevated at 3.24 with BUN of 42 on admission renal U/S showed mild cortical thinning of the bilateral kidneys without renal calculi or hydronephrosis. Creatinine today 2.2 (baseline Cr low-mid 1s) On IVF, Will d/c IVF later since her BP is getting high Continue to hold lisinopril Avoid nephrotoxic agents Continue monitor BMP (2) Abdominal bloating: (3) Nausea and vomiting: Symptoms have been going on for months Had multiple imaging and procedure done Benign pancreatic cyst that is being monitored, abdominal pelvis CT in February with possible concern for duodenal diverticulum Has EUS scheduled in May at [place]. ED physician discussed with Dr. Viera. Does not feel that any further imaging is needed at this time. Continue Zofran Psych recommended to d/c Bentyl since it can worsen confusion and precipitate or aggravate hallucinations concerns. Resolved (4) Multiple falls: Due to weakness Continue PT/OT Fall precaution (5) Hallucination, visual: (6) Auditory hallucinations: (7) Mood disorder: History of depression and anxiety and is currently taking bupropion, BuSpar, duloxetine and trazodone Continue holding trazodone and hydrocodone for now Will d/c Bentyl since it can aggravate or worsening confusion and hallucination Wellbutrin SR decrease to 150mg and trazodone d/c Cymbalta decrease to 40mg daily and change buspar to prn only Since we made so many changes on her psych meds, will like us to go over the medication that we discontinue or stop on discharge Will review med with patient and tomorrow on discharge (8) HTN (hypertension): BP Elevated Lisinopril on hold due to acute kidney injury Continue monitor BP (9) Diabetes type 2, controlled: A1c of 6.6 in Oct 2018. Hba1c pending On insulin sliding scale Monitor BS (10) Alzheimer's disease: Continue Aricept Stable Elevated WBC WBC 11K on admission UA negative for nitrite/Leukocytes/bacteria Afebrile, WBC trending down Denies any urinary symptoms urine cx pending Received Rocephin IV Will d/c abx if cx negative DVT Ppx: SQ heparin Code status: FULL Dispo: Will discharge home tomorrow Will review med with prior to discharge tomorrow Subjective Pt was seen and examined Sitting in chair with no distress Pt said that she feels good She said that she has not been feeling good like that for weeks She said that since admitting, she has not had any nausea and vomiting Denies any chest pain, palpitation, dizziness and SOB Physical Exam Physical Exam: General- No acute distress Head- atraumatic Eyes- PERRL, EOMI, ENT- oropharynx clear Neck- supple, no JVD Lungs- clear to auscultation Heart- regular rhythm; no murmur Abdomen- normal bowel sounds, soft, nontender Extremities- no calf tenderness Neuro- alert, oriented x 3; PERRL, EOMI; no facial palsy; no dysarthria Skin- warm & dry Results & Data Vital Signs (Past 12 Hours) Vital Signs Temp Pulse Pulse Pulse Resp BP BP 04/16/19 15:52 36.4 C L 92 H 20 175/81 H 04/16/19 14:20 91 H 04/16/19 11:37 36.7 C 96 H 18 153/84 H 04/16/19 07:48 36.6 C 74 20 164/81 H 04/16/19 07:00 92 H Pulse Ox 04/16/19 15:52 100 04/16/19 14:20 04/16/19 11:37 04/16/19 07:48 99 04/16/19 07:00
[2019-04-16] MEDS ORDERED: HydrALAZINE HCL 20 MG/ML VIAL ONE (18:10)
[2019-04-16] MEDS: FERROUS SULFATE 325 MG TAB PO SCH (21:08)
[2019-04-16] MEDS: DONEPEZIL HCL 10 MG TAB PO SCH (21:09)
[2019-04-16] MEDS: cefTRIAXone SODIUM 1,000 MG in DEXTROSE 5% 50 ML IV SCH (21:10)
[2019-04-17] MEDS: ACETAMINOPHEN 500 MG TAB PO PRN ×3 (04:27→23:25)
[2019-04-17] MEDS: HydrALAZINE HCL 20 MG/ML VIAL IV PRN ×2 (04:28→13:49)
[2019-04-17] MEDS: INSULIN ASPART 100 UNITS/ML 3 ML PEN SC SCH ×4 (09:00→21:05)
[2019-04-17] MEDS: CYANOCOBALAMIN 500 MCG TABLET (VITAMIN B-12) PO SCH (09:02)
[2019-04-17] MEDS: BuPROPion SR 150 MG TABCR PO SCH (09:02)
[2019-04-17] MEDS: ASPIRIN 81 MG ECTAB PO SCH (09:02)
[2019-04-17] MEDS: PANTOprazole 40 MG TAB PO SCH ×2 (09:03→21:08)
[2019-04-17] MEDS: HEPARIN SOD 5,000 UNIT/0.5 ML VIAL SQ SCH ×2 (09:03→21:09)
--- NOTE | 2019-04-17 12:25 | Hospitalist Progress Note ---
Date of Service April 17, 2019 Assessment & Plan (1) Acute kidney injury superimposed on chronic kidney disease: Possible related to dehydration from poor oral intake/nausea and vomiting Creatinine elevated at 3.24 with BUN of 42 on admission renal U/S showed mild cortical thinning of the bilateral kidneys without renal calculi or hydronephrosis. Received IVF and discontinued due to high blood pressure Continue to hold lisinopril Avoid nephrotoxic agents Creatinine has been improving Advised increasing oral intake of fluid Noted ready to be discharged (2) Abdominal bloating: Denies any symptoms as of this morning (3) Nausea and vomiting: Symptoms have been going on for months Had multiple imaging and procedure done Benign pancreatic cyst that is being monitored, abdominal pelvis CT in February with possible concern for duodenal diverticulum Has EUS scheduled in May at [place]. ED physician discussed with Dr. Viera. Does not feel that any further imaging is needed at this time. Continue Zofran Psych recommended to d/c Bentyl and this has been discontinued today 04/17 Denies any more nausea and/or vomiting (4) Multiple falls: Due to weakness Continue PT/OT Fall precaution (5) Hallucination, visual: Resolved (6) Auditory hallucinations: History of depression and anxiety and is currently taking bupropion, BuSpar, duloxetine and trazodone Continue holding trazodone and hydrocodone for now Will d/c Bentyl since it can aggravate or worsening confusion and hallucination Wellbutrin SR decrease to 150mg and trazodone d/c Cymbalta decrease to 40mg daily and change buspar to prn only Since we made so many changes on her psych meds, will like us to go over the medication that we discontinue or stop on discharge Will review med with patient and tomorrow on discharge Has been feeling better Advised to drink more fluid as of today (7) Mood disorder: Remains stable Appreciate psychiatric input and recommendation Medications will be updated on discharge Will need outpatient psychiatric appointment soon (8) HTN (hypertension): BP Elevated Lisinopril on hold due to acute kidney injury Continue monitor BP Blood pressure has been improving (9) Diabetes type 2, controlled: A1c of 6.6 in Oct 2018. Hba1c -7.3 On insulin sliding scale Monitor BS (10) Alzheimer's disease: Continue Aricept Stable Elevated WBC WBC 11K on admission UA negative for nitrite/Leukocytes/bacteria Afebrile, WBC trending down Denies any urinary symptoms urine cx pending-abdominal strep, not enterococcus and alpha strep, not enterococcus Received Rocephin IV Will d/c abx today 04/17 DVT Ppx: SQ heparin Code status: FULL Dispo: Will discharge home tomorrow Advised to drink more fluid Likely discharge tomorrow Subjective 04/17 Patient was seen and examined in medical telemetry unit Is out of bed on a chair and denies any significant symptoms Still complains to have weakness and tiredness and headache Sleep last night Denies any other acute symptoms Review of Systems Review of Systems: All systems reviewed and are unremarkable except as noted below Constitutional: + body aches, + malaise and + weakness Cardiovascular: no chest pain and no dyspnea Physical Exam Physical Exam: No apparent distress at rest. Sitting in a chair out of bed Constitutional: well developed; no acute distress and not ill appearing Eyes: PERRL, conjunctivae normal, anicteric sclerae ENMT: external ear and nose normal, oropharynx normal Neck: trachea midline, no thyromegaly Respiratory: normal respiratory effort Auscultation: lungs clear to auscultation bilaterally Cardiovascular: Rate/Rhythm: regular rate and regular rhythm Gastrointestinal (Abdomen): Inspection/Auscultation: abdomen normal to inspection and normal bowel sounds Percussion/Palpation: abdomen soft; abdomen nontender Musculoskeletal: No acute arthritis Psychiatric: Orientation: alert Affect: + anxious affect Mood: + depressed mood Lymphatic: no cervical or axillary lymphadenopathy Results & Data Vital Signs (Past 12 Hours) Vital Signs Temp Pulse Pulse Resp BP BP Pulse Ox 04/17/19 11:48 36.7 C 94 H 20 138/61 97 04/17/19 09:05 108 H 149/79 H 04/17/19 07:58 36.9 C 96 H 18 172/84 H 98 04/17/19 07:00 90 04/17/19 03:35 36.7 C 102 H 20 185/94 H 97 Medications Administered Current Inpatient Medications Acetaminophen (Tylenol) 1,000 mg PO Q12H PRN PRN Reason: Pain Stop: 05/14/19 20:42 Last Admin: 04/17/19 04:27 Dose: 1,000 mg Documented by: Albuterol (Ventolin Hfa) 2 puffs INH Q4H PRN PRN Reason: Wheezing Stop: 05/14/19 20:42 Albuterol (Duoneb) 3 ml INH Q6H PRN PRN Reason: Cough or Wheezing Stop: 05/14/19 20:42 Aspirin (Ecotrin Ectab) 81 mg PO QAM [facility] Stop: 05/15/19 08:59 Last Admin: 04/17/19 09:02 Dose: 81 mg Documented by: Bupropion HCl (Wellbutrin-Sr) 150 mg PO QAM [facility] Stop: 05/16/19 08:59 Last Admin: 04/17/19 09:02 Dose: 150 mg Documented by: Buspirone HCl (Buspar) 5 mg PO TID PRN PRN Reason: Anxiety Stop: 05/14/19 20:42 Cyanocobalamin (Vitamin B-12) 1,000 mcg PO DAILY [facility] Stop: 05/15/19 08:59 Last Admin: 04/17/19 09:02 Dose: 1,000 mcg Documented by: Dextrose (Dextrose 50%) 25 - 50 ml IV UD PRN; Protocol PRN Reason: Hypoglycemia Protocol Stop: 05/14/19 20:47 Donepezil HCl (Aricept) 5 mg PO HS [facility] Stop: 05/14/19 20:59 Last Admin: 04/16/19 21:09 Dose: 5 mg Documented by: Duloxetine HCl (Cymbalta) 40 mg PO QDL [facility] Stop: 05/16/19 11:29 Last Admin: 04/16/19 12:44 Dose: 40 mg Documented by: Ferrous Sulfate (Feosol) 325 mg PO HS [facility] Stop: 05/14/19 20:59 Last Admin: 04/16/19 21:08 Dose: 325 mg Documented by: Fluticasone Propionate (Flonase) 2 sprays LACI DAILY PRN PRN Reason: Sinusitis Stop: 05/14/19 20:42 Glucagon (Glucagen) 1 mg SQ UD PRN; Protocol PRN Reason: Hypoglycemia Protocol Stop: 05/14/19 20:47 Glucose (Glucose 40%) 15 - 30 gm PO UD PRN; Protocol PRN Reason: Hypoglycemia Protocol Stop: 05/14/19 20:47 Glucose (Dex4 Glucose) 4 - 8 tabs PO UD PRN; Protocol PRN Reason: Hypoglycemia Protocol Stop: 05/14/19 20:47 Heparin Sodium (Porcine) (Heparin Sodium (Porcine)) 5,000 units SQ Q12 [facility]; Protocol Stop: 05/14/19 20:59 Last Admin: 04/17/19 09:03 Dose: 5,000 units Documented by: Hydralazine HCl (Hydralazine Hcl) 5 mg IV Q6H PRN PRN Reason: for SBP above 170 Stop: 05/16/19 17:59 Last Admin: 04/17/19 04:28 Dose: 5 mg Documented by: Ceftriaxone Sodium 1,000 mg/ (Dextrose) 60 mls @ 100 mls/hr IV DAILY@2100 [facility]; Protocol Stop: 04/19/19 22:29 Last Infusion: 04/16/19 22:20 Dose: Infused Documented by: Insulin Aspart (Novolog Flexpen) 0 units SC ACHS [facility] Stop: 05/14/19 20:59 Last Admin: 04/17/19 09:00 Dose: 2 units Documented by: Miscellaneous (Order Awaiting Action) 1 ea N/A QS [facility] Stop: 05/15/19 07:59 Last Admin: 04/17/19 09:01 Dose: Not Given Documented by: Miscellaneous (Order Awaiting Action) 1 ea N/A QS [facility] Stop: 05/15/19 07:59 Last Admin: 04/17/19 09:02 Dose: Not Given Documented by: Miscellaneous (Carbohydrates For Hypoglycemia) 15 - 30 gm PO UD PRN PRN Reason: Hypoglycemia Treatment Stop: 05/14/19 20:47 Ondansetron HCl (Zofran) 4 mg IV Q6H PRN PRN Reason: Nausea Stop: 05/14/19 20:42 Pantoprazole Sodium (Protonix) 40 mg PO BID [facility] Stop: 05/14/19 20:59 Last Admin: 04/17/19 09:03 Dose: 40 mg Documented by: Polyethylene Glycol (Miralax Powder Packet) 17 gm PO DAILY PRN PRN Reason: Constipation Stop: 05/14/19 20:42 Promethazine HCl (Phenergan) 25 mg PO Q6H PRN PRN Reason: Nausea Stop: 05/14/19 20:42 Rosuvastatin Calcium (Crestor) 40 mg PO QDL [facility] Stop: 05/15/19 11:29 Last Admin: 04/16/19 13:49 Dose: 40 mg Documented by:
[2019-04-17] MEDS: DULOXETINE HCL 20 MG CAP PO SCH (13:39)
[2019-04-17] MEDS: ROSUVASTATIN CALCIUM 20 MG TAB PO SCH (13:39)
[2019-04-17] MEDS: DONEPEZIL HCL 10 MG TAB PO SCH (21:08)
[2019-04-17] MEDS: FERROUS SULFATE 325 MG TAB PO SCH (21:08)
[2019-04-18] MEDS: ACETAMINOPHEN 500 MG TAB PO PRN (08:14)
[2019-04-18] MEDS: BuPROPion SR 150 MG TABCR PO SCH (08:15)
[2019-04-18] MEDS: CYANOCOBALAMIN 500 MCG TABLET (VITAMIN B-12) PO SCH (08:16)
[2019-04-18] MEDS: HEPARIN SOD 5,000 UNIT/0.5 ML VIAL SQ SCH (08:16)
[2019-04-18] MEDS: ASPIRIN 81 MG ECTAB PO SCH (08:16)
[2019-04-18] MEDS: INSULIN ASPART 100 UNITS/ML 3 ML PEN SC SCH ×3 (08:18→17:38)
[2019-04-18] MEDS: PANTOprazole 40 MG TAB PO SCH (08:19)
[2019-04-18 08:46] LABS: BUN Creatinine Ratio 9.9 (10-20); Calcium 9.8 mg/dl (8.5-10.1); Est GFR (African American) 34.1; Est GFR (Non-African American) 29.4; Magnesium 1.3 mg/dl (1.8-2.4); Potassium 3.9 mmol/L (3.5-5.1)
[2019-04-18] MEDS ORDERED: METOPROLOL SUCC 25MG EXT REL TAB PO SCH (11:00)
[2019-04-18] MEDS: DULOXETINE HCL 20 MG CAP PO SCH (11:28)
[2019-04-18] MEDS: ROSUVASTATIN CALCIUM 20 MG TAB PO SCH (11:29)
[2019-04-18] MEDS: MAGNESIUM SULFATE / D5W 1 GM/100 ML BAG IV SCH ×2 (12:29→14:55)
--- NOTE | 2019-04-18 12:42 | Hospitalist Progress Note ---
Date of Service April 18, 2019 Assessment & Plan (1) Acute kidney injury superimposed on chronic kidney disease: Possible related to dehydration from poor oral intake/nausea and vomiting Creatinine elevated at 3.24 with BUN of 42 on admission renal U/S showed mild cortical thinning of the bilateral kidneys without renal calculi or hydronephrosis. Received IVF and discontinued due to high blood pressure Continue to hold lisinopril Avoid nephrotoxic agents Creatinine has been improving Advised increasing oral intake of fluid Creatinine improved to 1.72 as of today Advised to drink more fluid She will be discharged home this afternoon Low magnesium of 1.3 this morning Will be given intravenous magnesium 2 g before discharge (2) Abdominal bloating: Denies any symptoms as of this morning (3) Nausea and vomiting: Symptoms have been going on for months Had multiple imaging and procedure done Benign pancreatic cyst that is being monitored, abdominal pelvis CT in February with possible concern for duodenal diverticulum Has EUS scheduled in May at [facility]. ED physician discussed with Dr. Viera. Does not feel that any further imaging is needed at this time. Continue Zofran Psych recommended to d/c Bentyl and this has been discontinued today 04/17 Denies any more nausea and/or vomiting (4) Multiple falls: Due to weakness Continue PT/OT Fall precaution Discussed with the about recurrent falls Expressed 1 taking precaution while on feet (5) Hallucination, visual: Resolved (6) Auditory hallucinations: History of depression and anxiety and is currently taking bupropion, BuSpar, duloxetine and trazodone Continue holding trazodone and hydrocodone for now Will d/c Bentyl since it can aggravate or worsening confusion and hallucination Wellbutrin SR decrease to 150mg and trazodone d/c Cymbalta decrease to 40mg daily and change buspar to prn only Since we made so many changes on her psych meds, will like us to go over the medication that we discontinue or stop on discharge Denies any more auditory hallucination (7) Mood disorder: Remains stable Appreciate psychiatric input and recommendation Medications will be updated on discharge Will need outpatient psychiatric appointment soon (8) HTN (hypertension): BP Elevated Lisinopril on hold due to acute kidney injury Continue monitor BP Blood pressure has been improving Blood pressure noted to be high and she has not been on her lisinopril and a beta-feli Will restart beta-feli on discharge and lisinopril will be on hold until the kidney function is normalized She will need to have another blood pressure medications as an outpatient if the BP remains high (9) Diabetes type 2, controlled: A1c of 6.6 in Oct 2018. Hba1c -7.3 On insulin sliding scale Monitor BS (10) Alzheimer's disease: Continue Aricept Stable Elevated WBC WBC 11K on admission UA negative for nitrite/Leukocytes/bacteria Afebrile, WBC trending down Denies any urinary symptoms urine cx pending-abdominal strep, not enterococcus and alpha strep, not enterococcus Received Rocephin IV Will d/c abx today 04/17 DVT Ppx: SQ heparin Code status: FULL Dispo: Discussed with the in detail Discussed about importance of drinking more fluid Medication adjustment was discussed in full Advised to take precaution to avoid any falls Will be discharged this afternoon Subjective 04/17 Patient was seen and examined in medical telemetry unit Is out of bed on a chair and denies any significant symptoms Still complains to have weakness and tiredness and headache Sleep last night Denies any other acute symptoms 04/18 The patient was seen and examined in medical telemetry unit in presence of the She has been a little drowsy and has had frontal headache last night controlled with Tylenol Denies any other symptoms She wants to go home Review of Systems Review of Systems: All systems reviewed and are unremarkable except as noted below Constitutional: + body aches, + malaise and + weakness Neurologic: + generalized weakness Physical Exam Physical Exam: No apparent distress at rest. Lying in bed and looks tired and lethargic Constitutional: well developed; no acute distress and not ill appearing Eyes: PERRL, conjunctivae normal, anicteric sclerae ENMT: external ear and nose normal, oropharynx normal Neck: trachea midline, no thyromegaly Respiratory: normal respiratory effort Auscultation: lungs clear to auscultation bilaterally Cardiovascular: Rate/Rhythm: regular rate and regular rhythm Gastrointestinal (Abdomen): Inspection/Auscultation: abdomen normal to inspection and normal bowel sounds Percussion/Palpation: abdomen soft; abdomen nontender Musculoskeletal: No acute arthritis in any of the joints Neurologic: moves all extremities Psychiatric: Orientation: alert Affect: + anxious affect Mood: + depressed mood Lymphatic: no cervical or axillary lymphadenopathy Results & Data Vital Signs (Past 12 Hours) Vital Signs Temp Pulse Pulse Pulse Resp BP BP 04/18/19 09:07 108 H 148/88 H 04/18/19 07:55 36.9 C 118 H 20 161/90 H 04/18/19 04:15 98 H 04/18/19 04:00 36.6 C 104 H 19 164/84 H 04/18/19 00:59 36.8 C 108 H 23 162/82 H 168/85 H 04/18/19 00:34 83 173/90 H Pulse Ox 04/18/19 09:07 04/18/19 07:55 96 04/18/19 04:15 04/18/19 04:00 93 04/18/19 00:59 96 04/18/19 00:34 Laboratory Results BMP 04/18/19 08:05 Sodium 141 Potassium 3.9 Chloride 110 H Carbon Dioxide 22 BUN 17 Creatinine 1.72 H Glucose 159 H Calcium 9.8 Medications Administered Current Inpatient Medications Acetaminophen (Tylenol) 1,000 mg PO Q12H PRN PRN Reason: Pain Stop: 05/14/19 20:42 Last Admin: 04/18/19 08:14 Dose: 1,000 mg Documented by: Albuterol (Ventolin Hfa) 2 puffs INH Q4H PRN PRN Reason: Wheezing Stop: 05/14/19 20:42 Albuterol (Duoneb) 3 ml INH Q6H PRN PRN Reason: Cough or Wheezing Stop: 05/14/19 20:42 Aspirin (Ecotrin Ectab) 81 mg PO QAM [facility] Stop: 05/15/19 08:59 Last Admin: 04/18/19 08:16 Dose: 81 mg Documented by: Bupropion HCl (Wellbutrin-Sr) 150 mg PO QAM [facility] Stop: 05/16/19 08:59 Last Admin: 04/18/19 08:15 Dose: 150 mg Documented by: Buspirone HCl (Buspar) 5 mg PO TID PRN PRN Reason: Anxiety Stop: 05/14/19 20:42 Cyanocobalamin (Vitamin B-12) 1,000 mcg PO DAILY [facility] Stop: 05/15/19 08:59 Last Admin: 04/18/19 08:16 Dose: 1,000 mcg Documented by: Dextrose (Dextrose 50%) 25 - 50 ml IV UD PRN; Protocol PRN Reason: Hypoglycemia Protocol Stop: 05/14/19 20:47 Donepezil HCl (Aricept) 5 mg PO HS [facility] Stop: 05/14/19 20:59 Last Admin: 04/17/19 21:08 Dose: 5 mg Documented by: Duloxetine HCl (Cymbalta) 40 mg PO QDL [facility] Stop: 05/16/19 11:29 Last Admin: 04/18/19 11:28 Dose: 40 mg Documented by: Ferrous Sulfate (Feosol) 325 mg PO HS [facility] Stop: 05/14/19 20:59 Last Admin: 04/17/19 21:08 Dose: 325 mg Documented by: Fluticasone Propionate (Flonase) 2 sprays LACI DAILY PRN PRN Reason: Sinusitis Stop: 05/14/19 20:42 Glucagon (Glucagen) 1 mg SQ UD PRN; Protocol PRN Reason: Hypoglycemia Protocol Stop: 05/14/19 20:47 Glucose (Glucose 40%) 15 - 30 gm PO UD PRN; Protocol PRN Reason: Hypoglycemia Protocol Stop: 05/14/19 20:47 Glucose (Dex4 Glucose) 4 - 8 tabs PO UD PRN; Protocol PRN Reason: Hypoglycemia Protocol Stop: 05/14/19 20:47 Heparin Sodium (Porcine) (Heparin Sodium (Porcine)) 5,000 units SQ Q12 AYLA; Protocol Stop: 05/14/19 20:59 Last Admin: 04/18/19 08:16 Dose: 5,000 units Documented by: Hydralazine HCl (Hydralazine Hcl) 5 mg IV Q6H PRN PRN Reason: for SBP above 170 Stop: 05/16/19 17:59 Last Admin: 04/17/19 13:49 Dose: 5 mg Documented by: Magnesium Sulfate/Dextrose (Magnesium Sulfate / D5w) 1 gm in 100 mls @ 100 mls/hr IV Q1H [facility] Stop: 04/18/19 13:59 Last Admin: 04/18/19 12:29 Dose: 100 mls/hr Documented by: Insulin Aspart (Novolog Flexpen) 0 units SC ACHS [facility] Stop: 05/14/19 20:59 Last Admin: 04/18/19 12:35 Dose: 2 units Documented by: Metoprolol Succinate (Toprol Xl) 37.5 mg PO QAM [facility] Stop: 05/18/19 10:59 Last Admin: 04/18/19 11:26 Dose: 37.5 mg Documented by: Cyrilaneous (Order Awaiting Action) 1 ea N/A QS [facility] Stop: 05/15/19 07:59 Last Admin: 04/18/19 08:17 Dose: Not Given Documented by: Chidi (Order Awaiting Action) 1 ea N/A QS [facility] Stop: 05/15/19 07:59 Last Admin: 04/18/19 08:16 Dose: Not Given Documented by: Miscellaneous (Carbohydrates For Hypoglycemia) 15 - 30 gm PO UD PRN PRN Reason: Hypoglycemia Treatment Stop: 05/14/19 20:47 Ondansetron HCl (Zofran) 4 mg IV Q6H PRN PRN Reason: Nausea Stop: 05/14/19 20:42 Last Admin: 04/18/19 00:37 Dose: 4 mg Documented by: Pantoprazole Sodium (Protonix) 40 mg PO BID [facility] Stop: 05/14/19 20:59 Last Admin: 04/18/19 08:19 Dose: 40 mg Documented by: Polyethylene Glycol (Miralax Powder Packet) 17 gm PO DAILY PRN PRN Reason: Constipation Stop: 05/14/19 20:42 Promethazine HCl (Phenergan) 25 mg PO Q6H PRN PRN Reason: Nausea Stop: 05/14/19 20:42 Last Admin: 04/18/19 08:26 Dose: 25 mg Documented by: Rosuvastatin Calcium (Crestor) 40 mg PO QDL [facility] Stop: 05/15/19 11:29 Last Admin: 04/18/19 11:29 Dose: 40 mg Documented by:
--- NOTE | 2019-04-18 18:05 | Discharge Summary ---
Date of Service April 18, 2019 Admission HPI Per Admitting Provider This is a 69-year-old female with a PMH of CKD III, DM II, COPD, late onset Alzeimer's disease, pancreatic cyst, mood disorder who presented with continued nausea and vomiting. The symptoms have been going on intermittently for the past few months with associated abdominal bloating. Has been following closely with Dr. Viera of gastroenterology group for possible ischemic colitis and pancreatic cyst. Has undergone multiple imaging tests with February 2018 colonoscopy concerning for appearance of possible ischemic colitis. Has had intermittent days of nausea and vomiting with decreased appetite. States that she vomits 1-2 times a day depending on how many meals she eats. Has some lower abdominal pain but seems to have been having normal bowel movements. Stools are dark in color but patient is on iron supplement. Hemoglobin has been stable. Was prescribed Bentyl by flexographic press set up operator, but neither patient nor her think that patient has been taking that medication. Per , patient might have been improving in her confusion as aricpet added in January 2019, with some worsening of confusion recently. However past 2-3 weeks ahving AH of music and VH of seeing pupiies and TH of atelast one time of feeling cobwebs on her face. was started on Aricept. Has also been less coordinated at home and endorses 3 falls in recent past elevated Cr up to 3.24 that is trending downard currently after raising up in tecent past. psych meds are 80mg of cymbalta a day, wellbutrin er 150mg 1 po am and 1 po qhs, busapr 5mg 1 prn up to tid, might not take much at all and pt nor has cease of when/why she might take if she does in recent past, and trazodone 50mg hs prn but seems ot not take often at all despite tendency ot have trouble with her sleep. Of note pt rx'd bentyl for GI concerns 10mg prn up to tid, pt and hsuband thinks she does not take often but might take 1-2 times a day most days? (they are not sure) Husabnd under impression parkinsons was a ocnsideration given her trouble walking in recent past Admission Exam Per Admitting Provider Physical Exam: General Appearance: WD/WN, no apparent distress, chronically ill-appearing woman Head: normocephalic, atraumatic Eyes: normal inspection, PERRL, EOMI ENT: hearing grossly normal, pharynx normal (moist mucous membranes) Neck: supple, no JVD, no adenopathy Respiratory/Chest: lungs clear to auscultation. No wheezes, rales or rhonci. No respiratory distress or accessory muscle use Cardiovascular: regular rate, rhythm, no murmur, normal peripheral pulses Abdomen/GI: normal bowel sounds, soft, mildly tender tender to palpation in RLQ, LLQ Extremities/Musculoskelatal: normal inspection, no calf tenderness, normal capillary refill, no pedal edema Neurologic/Psych: alert, anxious mood/affect, oriented x 3, poor insight Skin: normal color, warm/dry Principal Diagnosis EDELMIRA on CKD, abdominal pain with nausea and vomiting-resolved, Alzheimer's disease with acute confusion, hypertension, type 2 diabetes Discharge Exam Constitutional well developed; no acute distress and not ill appearing Eyes PERRL, conjunctivae normal, anicteric sclerae ENMT external ear and nose normal, oropharynx normal Neck trachea midline, no thyromegaly Respiratory normal respiratory effort Auscultation: lungs clear to auscultation bilaterally Cardiovascular Rate/Rhythm: regular rate and regular rhythm Gastrointestinal (Abdomen) Inspection/Auscultation: abdomen normal to inspection and normal bowel sounds Percussion/Palpation: abdomen soft; abdomen nontender Neurologic moves all extremities Psychiatric Orientation: alert Affect: + anxious affect Mood: + depressed mood Lymphatic no cervical or axillary lymphadenopathy Discharge Data Allergies Allergy/AdvReac Type Severity Reaction Status Date / Time Cipro Allergy Unknown hives Verified 02/09/18 14:20 ciprofloxacin Allergy Unknown hives Verified 04/14/19 17:47 oxycodone Allergy Unknown hives; BUT Verified 04/14/19 17:47 PATIENT TAKES VICODIN W/O RXN Penicillins Allergy Unknown hives Verified 04/14/19 17:47 Consultations 04/14/19 18:19 ED Decision to Admit Stat 04/14/19 20:43 Consult Case Management - Discharge Planning Routine 04/15/19 08:00 Consult Psychiatry Routine Ordered Studies 04/15/19 00:00 US renal/blad retro comp Routine Hospital Course (1) Acute kidney injury superimposed on chronic kidney disease: Possible related to dehydration from poor oral intake/nausea and vomiting Creatinine elevated at 3.24 with BUN of 42 on admission renal U/S showed mild cortical thinning of the bilateral kidneys without renal calculi or hydronephrosis. Received IVF and discontinued due to high blood pressure Continue to hold lisinopril Avoid nephrotoxic agents Creatinine has been improving Advised increasing oral intake of fluid Creatinine improved to 1.72 as of today Advised to drink more fluid She will be discharged home this afternoon Low magnesium of 1.3 this morning Will be given intravenous magnesium 2 g before discharge (2) Abdominal bloating: Denies any symptoms as of this morning (3) Nausea and vomiting: Symptoms have been going on for months Had multiple imaging and procedure done Benign pancreatic cyst that is being monitored, abdominal pelvis CT in February with possible concern for duodenal diverticulum Has EUS scheduled in May at [facility]. ED physician discussed with Dr. Viera. Does not feel that any further imaging is needed at this time. Continue Zofran Psych recommended to d/c Bentyl and this has been discontinued today 04/17 Denies any more nausea and/or vomiting (4) Multiple falls: Due to weakness Continue PT/OT Fall precaution Discussed with the about recurrent falls Expressed 1 taking precaution while on feet (5) Hallucination, visual: Resolved (6) Auditory hallucinations: History of depression and anxiety and is currently taking bupropion, BuSpar, duloxetine and trazodone Continue holding trazodone and hydrocodone for now Will d/c Bentyl since it can aggravate or worsening confusion and hallucination Wellbutrin SR decrease to 150mg and trazodone d/c Cymbalta decrease to 40mg daily and change buspar to prn only Since we made so many changes on her psych meds, will like us to go over the medication that we discontinue or stop on discharge Denies any more auditory hallucination (7) Mood disorder: Remains stable Appreciate psychiatric input and recommendation Medications will be updated on discharge Will need outpatient psychiatric appointment soon (8) HTN (hypertension): BP Elevated Lisinopril on hold due to acute kidney injury Continue monitor BP Blood pressure has been improving Blood pressure noted to be high and she has not been on her lisinopril and a beta-feli Will restart beta-feli on discharge and lisinopril will be on hold until the kidney function is normalized She will need to have another blood pressure medications as an outpatient if the BP remains high (9) Diabetes type 2, controlled: A1c of 6.6 in Oct 2018. Hba1c -7.3 On insulin sliding scale Monitor BS (10) Alzheimer's disease: Continue Aricept Stable Elevated WBC WBC 11K on admission UA negative for nitrite/Leukocytes/bacteria Afebrile, WBC trending down Denies any urinary symptoms urine cx pending-abdominal strep, not enterococcus and alpha strep, not enterococcus Received Rocephin IV Will d/c abx today 04/17 DVT Ppx: SQ heparin Code status: FULL Dispo: Discussed with the in detail Discussed about importance of drinking more fluid Medication adjustment was discussed in full Advised to take precaution to avoid any falls Will be discharged this afternoon Total Time Total Time Spent Total Time Spent (In Minutes): 35 minutes Total Time Includes: Examination of the Patient, Discharge Planning, Medication Reconciliation and Communication With Other Providers Discharge Plan Discharge Items Patient Disposition: Home - Self-Care Reason For Visit: EDELMIRA,CONFUSION,N/V,ABDOMINAL BLOATING Discharge Diagnosis: EDELMIRA on CKD, abdominal pain with nausea and vomiting- resolved, Alzheimer's disease with acute confusion, hypertension, type 2 diabetes Condition: Fair Discharge Goals: Decrease discomfort, Improve function and Increase independence Activity: Resume your previous activity Non-emergency contact: Primary Care Provider Call non-emergency contact if: you have any medication questions and your symptoms worsen Follow-up/Referrals: Erika Causey MD [Primary Care Provider] - (Your doctor's office will call with an appointment within 7 days.) Diet: Carb Consistent or DM2 Addtl Provider Instructions: Please take precaution to avoid for. This was discussed in detail with the and the patient. She has high potential for falling. Medications stopped: Dicyclomine Lisinopril Hydrocodone and trazodone Medication changed: Bupropion 150 mg daily a.m. and Duloxetine 40 mg daily. Prescriptions: Continued acetaminophen 500 mg Tablet 1,000 mg PO Q12H PRN (Reason: Pain) RF: 0 ferrous sulfate 325 mg (65 mg iron) Tablet 325 mg PO HS RF: 0 aspirin [Aspir-81] 81 mg Tablet,Delayed Release (Dr/Ec) 81 mg PO QAM RF: 0 albuterol sulfate [Ventolin HFA] 90 mcg/actuation Hfa Aerosol Inhaler 2 puff INHALATION Q4H PRN (Reason: Wheezing) RF: 0 buspirone 5 mg tablet 5 mg PO TID PRN (Reason: Anxiety) RF: 0 ipratropium-albuterol 0.5 mg-3 mg(2.5 mg base)/3 mL Solution For Nebulization 3 ml INHALATION Q6H PRN (Reason: Cough or Wheezing) RF: 0 polyethylene glycol 3350 [Miralax] 17 gram Powder In Packet 17 g PO DAILY PRN (Reason: Constipation) RF: 0 donepezil 10 mg tablet 5 mg PO HS RF: 0 cyanocobalamin (vitamin B-12) [Vitamin B-12] 1,000 mcg Tablet 1,000 mcg PO DAILY RF: 0 melatonin 3 mg Tablet 3 mg PO HS RF: 0 ondansetron 8 mg tablet,disintegrating 8 mg translingual Q8H PRN (Reason: Nausea) RF: 0 repaglinide 0.5 mg tablet 0.5 mg PO UD RF: 0 glipizide 2.5 mg tablet extended release 24hr 2.5 mg PO DAILYBD RF: 0 promethazine 25 mg Tablet 25 mg PO Q6H PRN (Reason: Nausea) RF: 0 omeprazole 20 mg capsule,delayed release(DR/EC) 20 mg PO BID RF: 0 metoprolol succinate 25 mg tablet extended release 24 hr 37.5 mg PO QAM RF: 0 fluticasone propionate [Flonase Allergy Relief] 50 mcg/actuation Alpha,Suspension 2 spray INTRANASAL DAILY PRN (Reason: Sinusitis) RF: 0 rosuvastatin 40 mg tablet 40 mg PO QDL RF: 0 Breo Ellipta 200-25 mcg/dose Blister With Device 1 inh INHALATION DAILY PRN (Reason: COPD) RF: 0 Benefiber Healthy Shape 5 gram/7.4 gram Powder PO BID RF: 0 Changed bupropion HCl 150 mg tablet sustained-release 12 hr 150 mg PO QAM Qty: 0 RF: 0 duloxetine 20 mg capsule,delayed release(DR/EC) 40 mg PO QDL Qty: 0 RF: 0 Discontinued trazodone 50 mg tablet 50 mg PO HS RF: 0 lisinopril 20 mg tablet 20 mg PO QDL RF: 0 hydrocodone-acetaminophen 7.5-325 mg tablet 0.5 tab PO DAILY PRN (Reason: Pain) RF: 0 dicyclomine 10 mg capsule 10 mg PO TID PRN (Reason: Bloating) RF: 0 duloxetine 60 mg capsule,delayed release(DR/EC) 60 mg PO QDL RF: 0 Stand-Alone Forms: [facility] Discharge Orders: Discharge Order (Routine); Ordered 04/18/19 Ordered By: Cecilia Navarro Admission Data Admit Date/Time: 04/14/19 20:03 Attending Provider: Cecilia Navarro Admit Provider: Nic Yeboah Primary Care Provider: Erika Causey Other Providers: Antwan Jj I ; Nic Yeboah ; Cinthya Figueroa Service: Telemetry Medical
== END 2019-04-18 19:00 | disposition home or self-care (01) | DRG 683 ==
LOC: ED 16:21 → SUATTDRO 20:03 → 2N 20:03
DX: E86.0 Dehydration; J44.9 Chronic obstructive pulmonary disease, unspecified; N17.9 Acute kidney failure, unspecified; Z88.0 Allergy status to penicillin; R11.10 Vomiting, unspecified; F32.9 Major depressive disorder, single episode, unspecified; F02.80 Dementia in other diseases classified elsewhere, unspecified severity, without behavioral disturbance, psychotic disturbance, mood disturbance, and anxiety; Z83.3 Family history of diabetes mellitus; Z79.4 Long term (current) use of insulin; Z82.49 Family history of ischemic heart disease and other diseases of the circulatory system; R29.6 Repeated falls; Z87.891 Personal history of nicotine dependence; Z88.1 Allergy status to other antibiotic agents; E11.9 Type 2 diabetes mellitus without complications; K86.2 Cyst of pancreas; Z88.5 Allergy status to narcotic agent; N18.3 Chronic kidney disease, stage 3 (moderate); Z96.89 Presence of other specified functional implants; G30.9 Alzheimer's disease, unspecified